=== PATIENT | female | born 1965 | race Caucasian/White ===

== ENCOUNTER 2017-06-22 08:27 | Observation (INO) | payer SELFPAY ==
[2017-06-22] VITALS (11 sets, daily range): BP systolic 143–227; BP diastolic 90–126; PULSE 59–78; RESP 15–26; TEMP 97.8; O2SAT 94–98
[~2017-06-22] VITALS: Ht 154.9 cm; Wt 75.0 kg
[~2017-06-22 08:27] MED LIST: ALBU17I INH; HYDR-2768 PO; NAPR-576 PO
--- NOTE | 2017-06-22 08:38 | PD ---
HPI Chief Complaint: Respiratory Symptoms Time Seen by Provider: 08:32 Travel History International Travel<30 days: No Contact w/Intl Traveler<30days: No Traveled to known affect area: No History of Present Illness HPI 52-year-old female came to the emergency room with history of chest pain and shortness of breath that started last night. Her blood pressure was significantly elevated in triage and she was brought in emergently. Patient says that she has history of blood pressure but has not taken her medications in past 4-5 days since she ran out of medications. She does not have a primary care doctor. She complains of the chest pain in the center of her chest radiating to her back between her shoulder blades. It is a dull pain. Her blood pressure was 225 systolic and she appeared to be in distress upon arrival. No history of coronary artery disease in the past. Patient is a smoker. She said she had a cardiac catheterization done in 2007 which was clean. Patient does not take any aspirin. PFSH Past Medical History Narrative Medical List of her past medical, surgical, social and family history was reviewed from the nursing note. Asthma: Yes Cardiac Catheterization: Yes Diminished Hearing: No Hypertension: Yes Musculoskeletal: Yes (DISC PROBLEMS NECK & BACK) Migraines: Yes ?: Not Menopausal: Yes Past Surgical History Cholecystectomy: Yes Gynecologic Surgery: Yes (LASER FOR CERVICAL DYSPLASIA) Social History Alcohol Use: Yes (2-3 BEERS EVERY 5 DAYS) Tobacco Use: Yes (1PPD) Substance Use: No Allergies-Medications (Allergen,Severity, Reaction): Coded Allergies: bee venom protein (honey bee) (Unverified Allergy, Severe, SWELLS UP., ) prochlorperazine (Unverified Allergy, Severe, HIVES, 06/22/17) Comments List of her allergies reviewed from the nursing note. Reported Meds & Prescriptions Reported Meds & Active Scripts Active Lisinopril 10 Mg Tab 10 Mg PO DAILY Narrative Medication List of her home medications reviewed from the nursing note. Review of Systems Except as stated in HPI: all other systems reviewed are Neg Physical Exam Narrative GENERAL: Awake, alert, moderate to significant distress SKIN: Focused skin assessment warm/dry. HEAD: Atraumatic. Normocephalic. EYES: Pupils equal and round. No scleral icterus. No injection or drainage. ENT: No nasal bleeding or discharge. Mucous membranes pink and moist. NECK: Trachea midline. No JVD. CARDIOVASCULAR: Regular rate and rhythm. No murmur appreciated. RESPIRATORY: No accessory muscle use. Clear to auscultation. Breath sounds equal bilaterally. GASTROINTESTINAL: Abdomen soft, non-tender, nondistended. Hepatic and splenic margins not palpable. MUSCULOSKELETAL: No obvious deformities. No clubbing. No cyanosis. No edema. NEUROLOGICAL: Awake and alert. No obvious cranial nerve deficits. Motor grossly within normal limits. Normal speech. PSYCHIATRIC: Appropriate mood and affect; insight and judgment normal. Data Data Last Documented VS Vital Signs Date Time Temp Pulse Resp B/P (MAP) Pulse Ox O2 Delivery O2 Flow Rate FiO2 06/22/17 10:00 62 170/99 (122) 97 06/22/17 09:35 26 Nasal Cannula 2.00 06/22/17 08:29 97.8 Orders Orders Electrocardiogram (06/22/17 08:39) Basic Metabolic Panel (Bmp) (06/22/17 08:39) B-Type Natriuretic Peptide (06/22/17 08:39) Ckmb (Isoenzyme) Profile (06/22/17 08:39) Complete Blood Count With Diff (06/22/17 08:39) Magnesium (Mg) (06/22/17 08:39) Prothrombin Time / Inr (Pt) (06/22/17 08:39) Act Partial Throm Time (Ptt) (06/22/17 08:39) Troponin I (06/22/17 08:39) Chest, Single Ap (06/22/17 08:39) Ecg Monitoring (06/22/17 08:39) Bilateral Bp Monitoring (06/22/17 08:39) Iv Access Insert/Monitor (06/22/17 08:39) Oximetry (06/22/17 08:39) Oxygen Administration (06/22/17 08:39) Sodium Chloride 0.9% Flush (Ns Flush) (06/22/17 08:45) Cta Thor Abd Aorta W Iv C W3d (06/22/17 08:39) Labetalol Inj (Trandate Inj) (06/22/17 08:45) Iohexol 350 Inj (Omnipaque 350 Inj) (06/22/17 09:29) Admit Order (Ed Use Only) (8/24/17 10:34) Labs Laboratory Tests Test 06/22/17 08:40 White Blood Count 6.9 TH/MM3 Red Blood Count 4.85 MIL/MM3 Hemoglobin 15.6 GM/DL Hematocrit 46.8 % Mean Corpuscular Volume 96.4 FL Mean Corpuscular Hemoglobin 32.2 PG Mean Corpuscular Hemoglobin Concent 33.4 % Red Cell Distribution Width 12.9 % Platelet Count 324 TH/MM3 Mean Platelet Volume 7.8 FL Neutrophils (%) (Auto) 51.2 % Lymphocytes (%) (Auto) 39.5 % Monocytes (%) (Auto) 6.3 % Eosinophils (%) (Auto) 2.3 % Basophils (%) (Auto) 0.7 % Neutrophils # (Auto) 3.5 TH/MM3 Lymphocytes # (Auto) 2.7 TH/MM3 Monocytes # (Auto) 0.4 TH/MM3 Eosinophils # (Auto) 0.2 TH/MM3 Basophils # (Auto) 0.0 TH/MM3 CBC Comment DIFF FINAL Differential Comment Prothrombin Time 10.9 SEC Prothromb Time International Ratio 1.0 RATIO Activated Partial Thromboplast Time 26.6 SEC Blood Urea Nitrogen 9 MG/DL Creatinine 0.89 MG/DL Random Glucose 106 MG/DL Calcium Level 8.6 MG/DL Magnesium Level 2.1 MG/DL Sodium Level 140 MEQ/L Potassium Level 3.5 MEQ/L Chloride Level 107 MEQ/L Carbon Dioxide Level 26.5 MEQ/L Anion Gap 7 MEQ/L Estimat Glomerular Filtration Rate 66 ML/MIN Total Creatine Kinase 73 U/L Troponin I LESS THAN 0.02 NG/ML B-Type Natriuretic Peptide 56 PG/ML MDM Medical Decision Making Medical Screen Exam Complete: Yes Emergency Medical Condition: Yes Medical Record Reviewed: Yes Interpretation(s) Twelve-lead EKG was reviewed by me. Normal sinus rhythm, normal axis, lateral ST depressions. Heart rate of 71 bpm. Differential Diagnosis Hypertensive emergency, aortic dissection, ACS, non-STEMI, flash pulmonary edema , congestive heart failure Narrative Course 10:[address] thoracic aortogram was negative for any dissection. Blood test results of back and within acceptable limits. Patient was given 20 mg of IV labetalol upon arrival has lowered her blood pressure nicely. Patient is now complaining of some headache and I have given her Tylenol. Mental status is same which is GCS 15 since the arrival. I would like to admit this patient to the chest pain center to rule out ACS by electrical designer. Procedures EKG Prior to Arrival: No Diagnosis Primary Impression: Hypertensive urgency Additional Impressions: Chest pain Qualified Codes: R07.9 - Chest pain, unspecified Shortness of breath Admitting Information Admitting Physician Requests: Observation Scripts Lisinopril (Lisinopril) 10 Mg Tab 10 MG PO DAILY, #30 TAB 0 Refills Prov: Gautam Le 06/22/17 Tammie Hwang MD Jun 22, 2017 08:38
[2017-06-22] MEDS ORDERED: LABETALOL HCL 100 MG/20 ML VIAL IV PUSH ONE (08:45)
[2017-06-22] MEDS ORDERED: SODIUM CHLORIDE 0.9% FLUSH 10 ML FLUSH IVF PRN (08:45)
[2017-06-22 09:08] LABS: AUTOMATED NEUTROPHIL # 3.5 TH/MM3 (1.8-7.7); BASOPHIL % 0.7 % (0.0-2.0); EOSINOPHIL # 0.2 TH/MM3 (0-0.4); EOSINOPHIL % 2.3 % (0.0-4.0); HEMATOCRIT 46.8 % (35.0-46.0); HEMO FLAGS DIFF FINAL; LYMPH % 39.5 % (9.0-44.0); LYMPHOCYTE # 2.7 TH/MM3 (1.0-4.8); MEAN CELL VOLUME 96.4 FL (80.0-100.0); MEAN CORPUSCULAR HEMOGLOBIN 32.2 PG (27.0-34.0); MEAN CORPUSCULAR HGB CONC 33.4 % (32.0-36.0); MONO % 6.3 % (0.0-8.0); NEUT % 51.2 % (16.0-70.0); PLATELET COUNT 324 TH/MM3 (150-450); RED BLOOD COUNT 4.85 MIL/MM3 (4.00-5.30); RED CELL DISTRIBUTION WIDTH 12.9 % (11.6-17.2); WHITE BLOOD COUNT 6.9 TH/MM3 (4.0-11.0)
[2017-06-22 09:17] LABS: APTT (PATIENT) 26.6 SEC (24.3-30.1); PROTHROMBIN TIME - PATIENT 10.9 SEC (9.8-11.6)
--- NOTE | 2017-06-22 09:27 | RADRPT ---
EXAM DATE/TIME: 06/22/2017 08:55 [facility] COMPARISON: No previous studies available for comparison. INDICATIONS : Chest pain. MEDICAL HISTORY : Asthma SURGICAL HISTORY : None. ENCOUNTER: Initial ACUITY: 1 day PAIN SCORE: 6/10 LOCATION: Bilateral chest FINDINGS: A single view of the chest demonstrates the lungs to be symmetrically aerated without evidence of mas s, infiltrate or effusion. The cardiomediastinal contours are unremarkable. Osseous structures are intact. CONCLUSION: 1. No acute cardiopulmonary disease. Chris Adams MD on June 22, 2017 at 9:23 Board Certified Radiologist. This report was verified electronically.
[2017-06-22 09:29] LABS: ANION GAP 7 MEQ/L (5-15); BICARBONATE 26.5 MEQ/L (21.0-32.0); BLOOD UREA NITROGEN 9 MG/DL (7-18); CHLORIDE 107 MEQ/L (98-107); GLOMERULAR FILTRATION RATE 66 ML/MIN (>89); MAGNESIUM 2.1 MG/DL (1.5-2.5); POTASSIUM 3.5 MEQ/L (3.5-5.1); SODIUM (NA) 140 MEQ/L (136-145)
[2017-06-22] MEDS ORDERED: IOHEXOL 350 MG/ML 10 ML VIAL (for RAD DIAG) IVCONTRAST ONE (09:29)
[2017-06-22 09:49] LABS: CREATINE KINASE 73 U/L (26-192)
--- NOTE | 2017-06-22 10:14 | RADRPT ---
EXAM DATE/TIME: 06/22/2017 09:22 [facility] COMPARISON: CT BRAIN W/O CONTRAST, December 21, 2013, 21:15. INDICATIONS : Chest pain and shortness of breath since last night. IV CONTRAST: 73 cc Omnipaque 350 (iohexol) IV RADIATION DOSE: 17.06 CTDIvol (mGy) MEDICAL HISTORY : Hypertension. SURGICAL HISTORY : None. ENCOUNTER: Initial ACUITY: 1 day PAIN SCALE: 5/10 LOCATION: Bilateral chest TECHNIQUE: Volumetric scanning was performed using a multi-row detector CT scanner. The data was post processed with a variety of visualization algorithms including full volume maximum intensity projection, multi -planar sliding thin slab reformation, curved planar reformation, and surface rendering techniques. Using automated exposure control and adjustment of the mA and/or kV according to patient size, radiat ion dose was kept as low as reasonably achievable to obtain optimal diagnostic quality images. DICOM format image data is available electronically for review and comparison. FINDINGS: Thoracic aorta: The aortic root is normal in size at 3.2 cm. The ascending aorta measures 3.8 cm. The arch is normal in caliber. The origins the great vessels are widely patent. The descending thoracic aorta is normal in caliber throughout its course. There is no evidence of dissection. Abdominal aorta: The celiac and SMA are widely patent. There are small accessory renal arteries bilaterally. The renal arteries are widely patent. The infrarenal aorta is normal in caliber. The SONDRA is patent. Pelvic vasculature: The common iliac, internal iliac and external iliac circulation is adequate in caliber bilaterally. CT source data: The visualized pulmonary parenchyma is clear. The there is partial visualization of the pulmonary art eries. A larger central pulmonary embolus is seen. There is atherosclerotic plaquing within the coron demetrius arteries. No pericardial or pleural effusion is identified. There is no significant hilar, medias tinal or axillary adenopathy. The solid organs of the abdomen are intact. There is no retroperitoneal adenopathy. No free air or free fluid is present. The loops of small and large bowel are unremarkabl e. The visualized osseous structures demonstrate degenerative changes but are otherwise intact. CONCLUSION: 1. No evidence of thoracic aortic dissection. 2. The abdominal aorta is intact. 3. Moderate atherosclerotic plaquing involving the coronary arteries. 4. Degenerative changes in the thoracic and lumbar spine. Nelson Dodd MD on June 22, 2017 at 10:06 Board Certified Radiologist. This report was verified electronically.
[2017-06-22] MEDS ORDERED: ACETAMINOPHEN 325 MG TAB PO ONE (10:45)
--- NOTE | 2017-06-22 11:02 | EKG ---
Date Performed: 06/22/2017 Time Performed: 08:40:53 PTAGE: 52 years EKG: Sinus rhythm NONSPECIFIC ST & T-WAVE ABNORMALITY BORDERLINE ECG PREVIOUS TRACING : 05/26/2014 14.22 No significant change from previous tracing noted. DOCTOR: Aditya Juárez Interpretating Date/Time 06/22/2017 11:02:18
[2017-06-22] MEDS ORDERED: cloNIDine HCL 0.1 MG TAB PO PRN (11:45)
[2017-06-22] MEDS ORDERED: SODIUM CHLORIDE 0.9% FLUSH 5 ML FLUSH IVF PRN (11:45)
[2017-06-22] MEDS ORDERED: RESP: ALBUTEROL 2.5 MG/IPRATROPIUM 0.5 MG NEB (PRN) INH (11:45)
[2017-06-22] MEDS ORDERED: ALPRAZolam 0.25 MG TAB PO PRN (11:45)
[2017-06-22] MEDS ORDERED: ACETAMINOPHEN 500 MG CPLT PO PRN (11:45)
[2017-06-22] MEDS ORDERED: ACETAMINOPHEN/HYDROcodone 325 MG/7.5 MG TAB PO PRN (11:45)
[2017-06-22] MEDS ORDERED: ONDANSETRON HCL 4 MG/2 ML VIAL IV PRN (11:45)
--- NOTE | 2017-06-22 11:45 | HHI.HP ---
HPI Primary Care Physician No Primary Care Physician Chief Complaint Chest pain History of Present Illness This is a 52-year-old female that presents to ED with a complaint of a chest discomfort that began last night while lying down. She describes it as a central/left-sided chest tightness. It lasts 5-10 minutes with associated shortness of breath and nausea but denies diaphoresis. She's found that certain movements including lying on her left side can at times bring on the discomfort. Patient denies history of CAD. She states that she had a cardiac catheterization however this is about 10 years ago and states that it was normal. She has history of hypertension but ran out of lisinopril a few days ago. Her systolic blood pressure was 220s when arriving in the ED. She was given IV labetalol in the ED and systolic blood pressure has improved to 140s. Review of Systems General: Patient denies fevers, chills recent, and recent travel HEENT: Patient denies headache, sore throat, difficulty swallowing. Cardiovascular: Has the chest discomfort as mentioned above. Denies sensation of heart beating rapidly or irregularly. No syncope. Denies diaphoresis. Respiratory: She was short of breath. Denies inspirational chest discomfort. Denies coughing wheezing or hemoptysis. GI: She had some nausea. Patient denies vomiting, diarrhea, abdominal pain, bloody stools. Musculoskeletal: Patient denies joint pain or edema. Denies calf pain or edema. Neurovascular: Patient denies numbness, tingling, weakness in extremities. Denies headache. Endocrine: Denies polyuria and polydipsia. Hematologic: Denies easy bruising. Skin: Denies rash or itching. Past Family Social History Allergies: Coded Allergies: bee venom protein (honey bee) (Unverified Allergy, Severe, SWELLS UP., ) prochlorperazine (Unverified Allergy, Severe, HIVES, 06/22/17) Past Medical History Hypertension. Tobacco abuse. Denies hyperlipidemia, diabetes, and known CAD. Past Surgical History Cardiac catheterization without intervention about 10 years ago. Reported Medications Reported Meds & Active Scripts Active No Active Prescriptions or Reported Medications Active Ordered Medications Current Medications Medications (Trade) Dose Ordered Sig/Ke Route Start Time Stop Time Status Last Admin (NS Flush) 2 ml UNSCH PRN IVF 06/22/17 08:45 06/22/17 08:46 Family History Her brother in his 50s of CAD. Her mother had a bypass in her 50s. Social History Patient has been smoking for 30 years. For the last month she smoked one half pack a day but prior that she smoked on average 2 packs of cigarettes daily. Denies alcohol or illicit drugs. Physical Exam Vital Signs Vital Signs Date Time Temp Pulse Resp B/P (MAP) Pulse Ox O2 Delivery O2 Flow Rate FiO2 06/22/17 10:00 62 170/99 (122) 97 06/22/17 09:35 60 26 163/95 (117) 98 Nasal Cannula 2.00 06/22/17 08:58 65 22 146/95 (112) 95 Nasal Cannula 2.00 06/22/17 08:47 67 170/100 (123) 06/22/17 08:46 68 24 170/100 (123) 94 Nasal Cannula 2.00 06/22/17 08:40 94 Nasal Cannula 2.00 06/22/17 08:37 94 Room Air 06/22/17 08:37 70 227/126 (159) 06/22/17 08:37 67 18 227/125 (159) 98 Room Air 06/22/17 08:29 97.8 78 15 226/122 (156) 94 Physical Exam GENERAL: This is a well-nourished, well-developed patient, in no apparent distress. Patient speaks in clear complete sentences. Patient is pleasant. HEENT: Head is atraumatic and normocephalic. Neck is supple without lymphadenopathy and trachea is midline. No JVD or carotid bruits. CARDIOVASCULAR: Regular rate and rhythm without murmurs, gallops, or rubs. RESPIRATORY: There are bilateral expiratory wheezing.. Breath sounds equal bilaterally. No rales, or rhonchi. Chest wall is nontender. No use of accessory muscles. GASTROINTESTINAL: Abdomen is nontender, nondistended. Abdomen soft. No obvious pulsatile mass or bruit. No CVA tenderness. Strong femoral pulses bilaterally. Normal bowel sounds in all quadrants. MUSCULOSKELETAL: Patient is moving upper and lower extremities freely. No calf tenderness or edema, no Homans sign. Strong pulses in upper and lower extremities. NEUROLOGICAL: Patient is alert and oriented. Cranial nerves 2-12 are grossly intact. No focal deficits and speech is clear. SKIN: No rash and turgor is normal. Laboratory Laboratory Tests Test 8/24/17 08:40 White Blood Count 6.9 Red Blood Count 4.85 Hemoglobin 15.6 Hematocrit 46.8 Mean Corpuscular Volume 96.4 Mean Corpuscular Hemoglobin 32.2 Mean Corpuscular Hemoglobin Concent 33.4 Red Cell Distribution Width 12.9 Platelet Count 324 Mean Platelet Volume 7.8 Neutrophils (%) (Auto) 51.2 Lymphocytes (%) (Auto) 39.5 Monocytes (%) (Auto) 6.3 Eosinophils (%) (Auto) 2.3 Basophils (%) (Auto) 0.7 Neutrophils # (Auto) 3.5 Lymphocytes # (Auto) 2.7 Monocytes # (Auto) 0.4 Eosinophils # (Auto) 0.2 Basophils # (Auto) 0.0 CBC Comment DIFF FINAL Differential Comment Prothrombin Time 10.9 Prothromb Time International Ratio 1.0 Activated Partial Thromboplast Time 26.6 Blood Urea Nitrogen 9 Creatinine 0.89 Random Glucose 106 Calcium Level 8.6 Magnesium Level 2.1 Sodium Level 140 Potassium Level 3.5 Chloride Level 107 Carbon Dioxide Level 26.5 Anion Gap 7 Estimat Glomerular Filtration Rate 66 Total Creatine Kinase 73 Troponin I LESS THAN 0.02 B-Type Natriuretic Peptide 56 Result Diagram: 06/22/1740 06/22/17 0840 Imaging Last 48 hours Impressions Chest X-Ray 06/22/17 0839 Signed Impressions: Service Date/Time: May 08:55 - CONCLUSION: 1. No acute cardiopulmonary disease. Chris Adams MD Course Initial EKG is sinus rhythm with some lateral nonspecific ST T changes. Caprini VTE Risk Assessment Caprini VTE Risk Assessment: No/Low Risk (score <= 1) Caprini Risk Assessment Model Point Value = 1 Point Value = 2 Point Value = 3 Point Value = 5 Age 41-60 Minor surgery BMI > 25 kg/m2 Swollen legs Varicose veins or History of unexplained or recurrent spontaneous Oral contraceptives or hormone replacement Sepsis (< 1 month) Serious lung disease, including pneumonia (< 1 month) Abnormal pulmonary function Acute myocardial infarction Congestive heart failure (< 1 month) History of inflammatory bowel disease Medical patient at bed rest Age 61-74 Arthroscopic surgery Major open surgery (> 45 min) Laparoscopic surgery (> 45 min) Malignancy Confined to bed (> 72 hours) Immobilizing plaster cast Central venous access Age >= 75 History of VTE Family history of VTE Factor V Leiden Prothrombin [id number] Lupus anticoagulant Anticardiolipin antibodies Elevated serum homocysteine Heparin-induced thrombocytopenia Other congenital or acquired thrombophilia Stroke (< 1 month) Elective arthroplasty Hip, pelvis, or leg fracture Acute spinal cord injury (< 1 month) Prophylaxis Regimen Total Risk Factor Score Risk Level Prophylaxis Regimen 0-1 Low Early ambulation 2 Moderate Order ONE of the following: *Sequential Compression Device (SCD) *Heparin 5000 units SQ BID 3-4 Higher Order ONE of the following medications: *Heparin 5000 units SQ TID *Enoxaparin/Lovenox 40 mg SQ daily (WT < 150 kg, CrCl > 30 mL/min) *Enoxaparin/Lovenox 30 mg SQ daily (WT < 150 kg, CrCl > 10-29 mL/min) *Enoxaparin/Lovenox 30 mg SQ BID (WT < 150 kg, CrCl > 30 mL/min) AND/OR *Sequential Compression Device (SCD) 5 or more Highest Order ONE of the following medications: *Heparin 5000 units SQ TID (Preferred with Epidurals) *Enoxaparin/Lovenox 40 mg SQ daily (WT < 150 kg, CrCl > 30 mL/min) *Enoxaparin/Lovenox 30 mg SQ daily (WT < 150 kg, CrCl > 10-29 mL/min) *Enoxaparin/Lovenox 30 mg SQ BID (WT < 150 kg, CrCl > 30 mL/min) AND *Sequential Compression Device (SCD) Assessment and Plan Assessment and Plan * Chest pain: Patient has had first set of cardiac enzymes and EKGs. She will be seen by Dr. Ari Marrero of cardiology in the chest pain center and undergo likely a Lexiscan and be discharged if her stress test is nonischemic. * Hypertension: We'll restart her medication. * Tobacco abuse: Patient has been counseled on the importance of smoking cessation. Patient is stable at this time. She is agreeable to this plan. Gautam Le Jun 22, 2017 11:45
[2017-06-22] MEDS ORDERED: RESP: ALBUTEROL 2.5 MG/IPRATROPIUM 0.5 MG NEB (SCH) INH ONE (12:45)
[2017-06-22] MEDS ORDERED: LISINOPRIL 10 MG TAB PO ONE (13:00)
[2017-06-22] MEDS ORDERED: REGADENOSON INJ 0.4 MG/5 ML SYR ONE (13:54)
--- NOTE | 2017-06-22 15:52 | RADRPT ---
EXAM DATE/TIME: 06/22/2017 13:18 [facility] COMPARISON: No previous studies available for comparison. INDICATIONS : Left sided chest pain. Angina. Coronary artery disease. DOSE: 26.7 mCi Tc99m Myoview at stress. 8.2 mCi Tc99m Myoview at rest. 0.4 mg Lexiscan STRESS SYMPTOMS: Shortness of breath. EJECTION FRACTION: 59% MEDICAL HISTORY : Hypertension. Smaoker and asthma. SURGICAL HISTORY : Back surgery. ENCOUNTER: Initial ACUITY: 1 day PAIN SCALE: 4/10 LOCATION: Left chest TECHNIQUE: The patient underwent pharmacologic stress with infusion of prescribed dose. Continuous ECG tracing was monitored during stress. Gated SPECT imaging was performed after stress and conventional SPECT i maging was performed at rest. The examination was performed on a SPECT/CT scanner, both attenuation and non-corrected datasets were reviewed. FINDINGS: DISTRIBUTION: The maximum perfused segment at stress is in the anterolateral wall. PERFUSION STUDY: The pattern of perfusion at stress is within normal limits. GATED STUDY: There is intact wall motion and thickening without hypokinetic or dyskinetic segments. CONCLUSION: 1. No significant focal perfusion abnormality with stress. 2. No significant focal wall motion abnormality. EF of 59%. RISK CATEGORY: Low (<1% Annual Mortality Rate) Chris Adams MD on June 22, 2017 at 15:48 Board Certified Radiologist. This report was verified electronically.
--- NOTE | 2017-06-22 16:28 | HHI.DCPOC ---
Discharge Care Plan Diagnosis: (1) Hypertension (2) Tobacco abuse (3) Chest pain Goals to Promote Your Health * To prevent worsening of your condition and complications * To maintain your health at the optimal level Directions to Meet Your Goals Take your medications as prescribed Follow your dietary instruction Follow activity as directed Keep your appointments as scheduled Take your immunizations and boosters as scheduled If your symptoms worsen call your PCP, if no PCP go to Urgent Care Center or Emergency Room Smoking is Dangerous to Your Health. Avoid second hand smoke Call the 24-hour hour crisis hotline for domestic abuse at Gautam Le Jun 22, 2017 16:28
[2017-06-22] MEDS ORDERED: LISI10TA3 PO (16:29)
--- NOTE | 2017-06-22 16:35 | TR ---
Date Performed: 06/22/2017 Time Performed: 14:00:16 DOCTOR: Ari Marrero DRUG LIST: CLINICAL HISTORY: ANGINA REASON FOR TEST: Angina REASON FOR ENDING: OBSERVATION: CONCLUSION: Lexiscan stress test was performed under standard four minute protocol. Radionuclid e was injected one minute prior to ending the test. No electrocardiographic abormalities were present to suggest ischemia. Nuclear imaging and interpretation are pending. COMMENTS:
[2017-06-22] MEDS ORDERED: SODIUM CHLORIDE 0.9% FLUSH 5 ML FLUSH IVF SCH (21:00)
[2017-06-23] MEDS ORDERED: ASPIRIN 325 MG TAB PO SCH (09:00)
[2017-06-30] MEDS ORDERED: VENTAER INH ×2 (14:52→15:01)
[2017-06-30] MEDS ORDERED: ADVA115A INH ×2 (14:52→15:01)
[2017-06-30] MEDS ORDERED: LISI10TA3 PO (14:58)
[2017-06-30] MEDS ORDERED: AMLO10TA2 PO (14:59)
[2017-06-30] MEDS ORDERED: IBUP-232 PO (15:10)
[2017-07-21] MEDS ORDERED: ESCI10TA PO (09:47)
[2017-07-21] MEDS ORDERED: HYDR50TA94 PO (09:47)
[2017-07-21] MEDS ORDERED: LAMO25TA PO (09:47)
== END 2017-06-22 18:07 | disposition home or self-care (01) ==
LOC: NEPC 08:27 → NEDA 10:35 → NEPGCP 11:51
PROVIDERS: ADMIT Internal Medicine Cardiovascular Disease; ATTEND Internal Medicine Cardiovascular Disease
DX: I10 Essential (primary) hypertension (principal); R07.89 Other chest pain; R94.31 Abnormal electrocardiogram [ECG] [EKG]; F17.200 Nicotine dependence, unspecified, uncomplicated
CPT/HCPCS: 71010; 71275; 74174; 78452; 80048; 82550; 83735; 83880; 84484; 85025; 85610; 85730; 93005; 93017; 94664; 99285; A9502; G0378; J2785; Q9967

== ENCOUNTER 2017-07-02 17:50 | Inpatient (IN) | payer OTHER ==
[~2017-07-02] VITALS: Ht 152.4 cm; Wt 77.6 kg
[2017-07-02] VITALS (8 sets, daily range): BP systolic 101–138; BP diastolic 58–80; PULSE 88–110; RESP 20–34; TEMP 99; O2SAT 89–95
[~2017-07-02 17:50] MED LIST changes: +ADVA115A INH; -ALBU17I INH; +AMLO10TA2 PO; -HYDR-2768 PO; +IBUP-232 PO; +LISI10TA3 PO; -NAPR-576 PO; +VENTAER INH
[2017-07-02] MEDS ORDERED: SODIUM CHLORIDE 0.9% FLUSH 10 ML FLUSH IVF PRN (18:00)
--- NOTE | 2017-07-02 18:07 | PD ---
HPI Chief Complaint: Respiratory Symptoms Time Seen by Provider: 18:00 Travel History International Travel<30 days: No Contact w/Intl Traveler<30days: No Traveled to known affect area: No History of Present Illness HPI Patient comes in complaining of dyspnea that she awoke with this morning. Patient states she is needs a breathing treatment home this morning that seemed to help until about an hour ago she began becoming short of breath again. Patient states she did not have her breathing treatment with her nor an inhaler. Patient received 2 albuterol treatments along with 125 of Solu-Medrol by EMS that helped some. Patient reports associating tightness around her chest and feeling her heart is fluttering. Patient denies any fevers, nausea, vomiting, abdominal pain or loss change in bowel or bladder, or numbness or tingling anywhere. Symptoms are worse with trying to exert herself. PFSH Past Medical History Asthma: Yes Heart Rhythm Problems: No Cardiac Catheterization: Yes Cardiovascular Problems: Yes High Cholesterol: No Congestive Heart Failure: No Diabetes: No Diminished Hearing: No Hypertension: Yes Musculoskeletal: Yes (DISC PROBLEMS NECK & BACK) Immunizations Current: No Migraines: Yes ?: Not Menopausal: Yes Past Surgical History Cholecystectomy: Yes Coronary Artery Bypass Graft: No Gynecologic Surgery: Yes (LASER FOR CERVICAL DYSPLASIA) Social History Alcohol Use: Yes (OCC ) Tobacco Use: Yes (1PPD) Substance Use: No (DENIES ) Allergies-Medications (Allergen,Severity, Reaction): Coded Allergies: bee venom protein (honey bee) (Unverified Allergy, Severe, SWELLS UP., 06/30) prochlorperazine (Unverified Allergy, Severe, HIVES, 06/30/17) Reported Meds & Prescriptions Reported Meds & Active Scripts Active Ibuprofen 600 Mg Tab 600 Mg PO Q8H PRN Advair Hfa 12 GM Inh (Fluticasone-Salmeterol 12 GM Inh) 115-21 Mcg/Act Aer 2 Puff INH BID Ventolin Hfa 18 GM Inh (Albuterol Sulfate) 90 Mcg/Act Aer 2 Puff INH Q4-6H PRN Amlodipine (Amlodipine Besylate) 10 Mg Tab 10 Mg PO DAILY Lisinopril 10 Mg Tab 10 Mg PO DAILY Review of Systems Except as stated in HPI: all other systems reviewed are Neg Physical Exam Narrative GENERAL: Well-developed, overly nourished, in moderate respiratory distress, and non-ill appearing. SKIN: Focused skin assessment warm and dry. HEAD: Atraumatic. Normocephalic. EYES: Pupils equal and round. EOMI. No scleral icterus. No injection or drainage. ENT: No nasal bleeding or discharge. Mucous membranes pink and moist. NECK: Trachea midline. Supple. No nuclear rigidity. CARDIOVASCULAR: Regular rate and rhythm. No murmur appreciated. RESPIRATORY: Accessory muscle use. Respiratory distress. Decreased breath sounds throughout with wheezing. Patient struggling to speak in full sentences. GASTROINTESTINAL: Abdomen soft, non-tender, nondistended, and no guarding. Hepatic and splenic margins not palpable. No pulsatile mass. MUSCULOSKELETAL: No obvious deformities. No clubbing. No cyanosis. No edema. Full range of motion. NEUROLOGICAL: Awake and alert. No obvious cranial nerve deficits. Motor grossly within normal limits. PSYCHIATRIC: Appropriate mood and affect; insight and judgment normal. Data Data Last Documented VS Vital Signs Date Time Temp Pulse Resp B/P (MAP) Pulse Ox O2 Delivery O2 Flow Rate FiO2 07/02/17 19:41 97 26 112/74 (87) BiPAP 50 07/02/17 19:04 95 07/02/17 18:03 3.00 07/02/17 17:55 99.0 Orders Orders Complete Blood Count With Diff (07/02/17 18:00) Basic Metabolic Panel (Bmp) (07/02/17 18:00) Act Partial Throm Time (Ptt) (07/02/17 18:00) Prothrombin Time / Inr (Pt) (07/02/17 18:00) Ckmb (Isoenzyme) Profile (07/02/17 18:00) Troponin I (07/02/17 18:00) Arterial Blood Gas (Abg) (07/02/17 18:00) Iv Access Insert/Monitor (07/02/17 18:00) Electrocardiogram (07/02/17 18:00) Ecg Monitoring (07/02/17 18:00) Oximetry (07/02/17 18:00) Oxygen Administration (07/02/17 18:00) Chest, Single Ap (07/02/17 18:00) Sodium Chloride 0.9% Flush (Ns Flush) (07/02/17 18:00) Albuterol-Ipratropium Neb (Duoneb Neb) (07/02/17 18:00) Resp Bipap / Cpap Non Invas Vt (07/02/17 18:00) Magnesium Sulfate 1 Gm Premix (Magnesium (07/02/17 18:15) CKMB (07/02/17 18:00) CKMB% (07/02/17 18:00) Ketorolac Inj (Toradol Inj) (07/02/17 19:45) Arterial Blood Gas (Abg) (07/02/17 19:47) Admit Order (Ed Use Only) (07/02/17 20:20) Labs Laboratory Tests Test 07/02/17 18:00 07/02/17 18:23 White Blood Count 9.0 TH/MM3 Red Blood Count 4.71 MIL/MM3 Hemoglobin 15.5 GM/DL Hematocrit 45.8 % Mean Corpuscular Volume 97.2 FL Mean Corpuscular Hemoglobin 32.9 PG Mean Corpuscular Hemoglobin Concent 33.9 % Red Cell Distribution Width 12.8 % Platelet Count 307 TH/MM3 Mean Platelet Volume 8.8 FL Neutrophils (%) (Auto) 60.5 % Lymphocytes (%) (Auto) 27.8 % Monocytes (%) (Auto) 9.0 % Eosinophils (%) (Auto) 1.6 % Basophils (%) (Auto) 1.1 % Neutrophils # (Auto) 5.4 TH/MM3 Lymphocytes # (Auto) 2.5 TH/MM3 Monocytes # (Auto) 0.8 TH/MM3 Eosinophils # (Auto) 0.1 TH/MM3 Basophils # (Auto) 0.1 TH/MM3 CBC Comment DIFF FINAL Differential Comment Prothrombin Time 10.9 SEC Prothromb Time International Ratio 1.0 RATIO Activated Partial Thromboplast Time 26.3 SEC Blood Urea Nitrogen 12 MG/DL Creatinine 1.26 MG/DL Random Glucose 127 MG/DL Calcium Level 8.7 MG/DL Sodium Level 139 MEQ/L Potassium Level 4.0 MEQ/L Chloride Level 107 MEQ/L Carbon Dioxide Level 27.1 MEQ/L Anion Gap 5 MEQ/L Estimat Glomerular Filtration Rate 44 ML/MIN Total Creatine Kinase 140 U/L Creatine Kinase MB 1.7 NG/ML Troponin I LESS THAN 0.02 NG/ML Blood Gas Puncture Site RT RADIAL Blood Gas Patient Temperature 98.6 Blood Gas HCO3 24 mmol/L Blood Gas Base Excess 0.0 mmol/L Blood Gas Oxygen Saturation 80 % Arterial Blood pH 7.42 Arterial Blood Partial Pressure CO2 37 mmHg Arterial Blood Partial Pressure O2 47 mmHG Arterial Blood Oxygen Content 16.8 Vol % Arterial Blood Carboxyhemoglobin 5.7 % Arterial Blood Methemoglobin 0.8 % Blood Gas Hemoglobin 15.0 G/DL Oxygen Delivery Device NASAL CANNULA Blood Gas Liter Flow 3 L/M MDM Medical Decision Making Medical Screen Exam Complete: Yes Emergency Medical Condition: Yes Interpretation(s) EKG reviewed by Dr. Baca shows sinus tachycardia with a ventricular rate of 104. No STEMI. Chest x-ray read by the radiologist shows: No acute disease. Chest x-ray read by the radiologist shows: No acute disease. Differential Diagnosis COPD exacerbation, pneumonia, electrolyte abnormality, acute coronary syndrome, other Narrative Course Patient was seen and examined. Initial laboratory radiological studies were ordered. Patient was placed on BiPAP with DuoNeb treatments. IV magnesium was ordered. Discussed patient with Dr. Baca, who saw and evaluated the patient and is in agreement with plan of care and disposition. If the patient does not improve on BiPAP, Dr. Baca discussed with patient possibility of needing intubation 1849 patient reassessed reports some improvement with the BiPAP and DuoNeb's. 1929 patient reports improvement of her BiPAP and is asking for something for headache now. Discussed all findings and plan care of patient who is agreeable for admission. Physician Communication Physician Communication [address] Renee, who is agreeable to admit the patient and is requesting repeat ABG. Diagnosis Primary Impression: COPD with acute exacerbation Admitting Information Admitting Physician Requests: Admit Condition: Stable William Waldron Jul 02, 2017 18:07
--- NOTE | 2017-07-02 18:19 | RADRPT ---
EXAM DATE/TIME: 07/02/2017 18:13 [facility] COMPARISON: CHEST SINGLE AP, June 22, 2017, 8:55. INDICATIONS : Short of breath MEDICAL HISTORY : Hypertension. Asthma SURGICAL HISTORY : None. ENCOUNTER: Initial ACUITY: 2 days PAIN SCORE: 0/10 LOCATION: Bilateral chest FINDINGS: A single view of the chest demonstrates the lungs to be symmetrically aerated without evidence of mas s, infiltrate or effusion. The cardiomediastinal contours are unremarkable. Osseous structures are intact. The study is degraded by mild motion artifact. There are overlying cardiac leads. CONCLUSION: No acute disease. Mohinder Root MD on July 02, 2017 at 18:13 Board Certified Radiologist. This report was verified electronically.
[2017-07-02 18:24] LABS: AUTOMATED NEUTROPHIL # 5.4 TH/MM3 (1.8-7.7); BASOPHIL # 0.1 TH/MM3 (0-0.2); BASOPHIL % 1.1 % (0.0-2.0); EOSINOPHIL # 0.1 TH/MM3 (0-0.4); EOSINOPHIL % 1.6 % (0.0-4.0); HEMATOCRIT 45.8 % (35.0-46.0); HEMO FLAGS DIFF FINAL; LYMPH % 27.8 % (9.0-44.0); LYMPHOCYTE # 2.5 TH/MM3 (1.0-4.8); MEAN CELL VOLUME 97.2 FL (80.0-100.0); MEAN CORPUSCULAR HEMOGLOBIN 32.9 PG (27.0-34.0); MEAN CORPUSCULAR HGB CONC 33.9 % (32.0-36.0); NEUT % 60.5 % (16.0-70.0); PLATELET COUNT 307 TH/MM3 (150-450); RED BLOOD COUNT 4.71 MIL/MM3 (4.00-5.30); RED CELL DISTRIBUTION WIDTH 12.8 % (11.6-17.2)
[2017-07-02 18:34] LABS: APTT (PATIENT) 26.3 SEC (24.3-30.1); PROTHROMBIN TIME - PATIENT 10.9 SEC (9.8-11.6)
[2017-07-02 18:37] LABS: BLOOD GAS CARBOXYHEMOGLOBIN 5.7 % (0-4); BLOOD GAS HCO3 24 mmol/L (22-26); BLOOD GAS METHEMOGLOBIN 0.8 % (0-2); BLOOD GAS O2 HGB SATURATION 80 % (90-100); BLOOD GAS OXYGEN CONTENT 16.8 Vol % (12.0-20.0); BLOOD GAS PCO2 37 mmHg (38-42); BLOOD GAS PO2 47 mmHG (61-120); CRITICAL VALUE YES; DRAW SITE RT RADIAL; LITER FLOW 3 L/M; NUMBER OF ARTERIAL PUNCTURES 1; OXYGEN DEVICE NASAL CANNULA; STAT YES; TEMP CORR TO 98.6; ULNAR PULSE PRESENT
[2017-07-02] MEDS: RESP: ALBUTEROL 2.5 MG/IPRATROPIUM 0.5 MG NEB (SCH) INH ×3 (18:37→22:36)
[2017-07-02] MEDS: MAGNESIUM SULFATE 1 GM PREMIX 100 ML IV SCH ×2 (18:59→20:33)
[2017-07-02 19:04] LABS: ANION GAP 5 MEQ/L (5-15); BICARBONATE 27.1 MEQ/L (21.0-32.0); BLOOD UREA NITROGEN 12 MG/DL (7-18); CHLORIDE 107 MEQ/L (98-107); CREATINE KINASE 140 U/L (26-192); GLOMERULAR FILTRATION RATE 44 ML/MIN (>89); SODIUM (NA) 139 MEQ/L (136-145)
[2017-07-02 19:17] LABS: CKMB 1.7 NG/ML (0.5-3.6)
[2017-07-02] MEDS ORDERED: KETOROLAC TROMETHAMINE 30 MG/ML (IVP) VIAL IV PUSH ONE (19:45)
[2017-07-02 20:30] LABS: BLOOD GAS CARBOXYHEMOGLOBIN 3.9 % (0-4); BLOOD GAS HCO3 23 mmol/L (22-26); BLOOD GAS METHEMOGLOBIN 0.7 % (0-2); BLOOD GAS O2 HGB SATURATION 91 % (90-100); BLOOD GAS PCO2 38 mmHg (38-42); BLOOD GAS PO2 74 mmHG (61-120); BLOOD GAS TOTAL HGB 14.9 G/DL (12.0-16.0); TEMP CORR TO 98.6
[2017-07-02 20:31] LABS: CRITICAL VALUE NO; DRAW SITE RT RADIAL; FIO2 50 %; NUMBER OF ARTERIAL PUNCTURES 1; OXYGEN DEVICE BiPAP; STAT YES; ULNAR PULSE PRESENT; VENT SETTINGS IPAP10/EPAP5
[2017-07-02] MEDS ORDERED: DEXTROSE 50% IN WATER 50 ML VIAL(D50) IV PUSH PRN (20:45)
[2017-07-02] MEDS ORDERED: SODIUM CHLORIDE 0.9% FLUSH 10 ML FLUSH IV FLUSH PRN (20:45)
[2017-07-02] MEDS ORDERED: NALOXONE HCL 0.4 MG/ML AMP IV PRN (20:45)
[2017-07-02] MEDS ORDERED: GLUCAGON 1 MG/ML VIAL OTHER PRN (20:45)
[2017-07-02] MEDS ORDERED: ENALAPRILAT 1.25 MG/ML VIAL IV PUSH PRN (20:45)
--- NOTE | 2017-07-02 20:45 | HHI.HP ---
[facility]ician No Primary Care Physician Admission Diagnosis COPD exacerbation Diagnoses: Chief Complaint: Short of breath Travel History International Travel<30 Days: No Contact w/Intl Traveler <30 Da: No Traveled to Known Affected Are: No History of Present Illness This 52 years old female with history of tobacco abuse and COPD who recently hospitalized for pneumonia state of the hospital for a week and that happened 6 weeks ago and normal hospital, presented today with severe worsening short of breath with chest tightness, phlegm production, dizziness and headache, patient saw her primary care on Monday she was prescribed inhalers but she didn't get it because she didn't have money. No fever or chills no abdominal pain diarrhea constipation dysuria urgency or frequency. She received multiple DuoNeb with 125 mg of iv Solu-Medrol without improvement BiPAP has been tried which showed improvement, ABG ordered by me and showed the CO2 73 and PO2 34. I saw the patient and her fianc was in the room at the bedside. She was able to talk comfortably after we took off the BiPAP and place on nasal cannula. 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 Past Surgical History gallbladder removal cryo treatment to cervix 20yrs ago Tubal ligation Allergies: Coded Allergies: bee venom protein (honey bee) (Unverified Allergy, Severe, SWELLS UP., 06/30) prochlorperazine (Unverified Allergy, Severe, HIVES, 06/30/17) Family History dm Social History Tobacco use: 1/2PPD X 45 yrs Alcohol use: rarely, once a year Illicit drug use: denies Physical Exam Vital Signs Vital Signs Date Time Temp Pulse Resp B/P (MAP) Pulse Ox O2 Delivery O2 Flow Rate FiO2 07/02/17 19:41 97 26 112/74 (87) BiPAP 50 07/02/17 19:04 102 22 123/75 (91) 95 BiPAP 07/02/17 18:38 93 50 07/02/17 18:03 105 28 92 Nasal Cannula 3.00 07/02/17 18:03 102 34 92 Nasal Cannula 3.00 07/02/17 18:03 89 Nasal Cannula 3.00 07/02/17 17:55 99.0 110 28 138/80 (99) 89 Physical Exam - GENERAL: This is a well-nourished, well-developed patient, in mild respiratory distress. SKIN: No rashes, warm and dry HEAD: Atraumatic. Normocephalic. EYES: Pupils equal round and reactive. Extraocular motions intact. No scleral icterus. ENT: Nose without bleeding, or drainage, Airway patent. NECK: Trachea midline. Supple CARDIOVASCULAR: Regular rate and rhythm without murmurs, gallops, or rubs. RESPIRATORY: Scattered wheezes bilaterally with slight expiratory muscle use. GASTROINTESTINAL: Abdomen soft, non-tender, nondistended. Positive bowel sounds MUSCULOSKELETAL: Extremities without clubbing, cyanosis, or edema. Pedal pulses appreciated NEUROLOGICAL: Awake and alert. Moves all extremity. Normal speech.no focal neurological deficit Laboratory Laboratory Tests Test 07/02/17 18:00 07/02/17 18:23 White Blood Count 9.0 Red Blood Count 4.71 Hemoglobin 15.5 Hematocrit 45.8 Mean Corpuscular Volume 97.2 Mean Corpuscular Hemoglobin 32.9 Mean Corpuscular Hemoglobin Concent 33.9 Red Cell Distribution Width 12.8 Platelet Count 307 Mean Platelet Volume 8.8 Neutrophils (%) (Auto) 60.5 Lymphocytes (%) (Auto) 27.8 Monocytes (%) (Auto) 9.0 Eosinophils (%) (Auto) 1.6 Basophils (%) (Auto) 1.1 Neutrophils # (Auto) 5.4 Lymphocytes # (Auto) 2.5 Monocytes # (Auto) 0.8 Eosinophils # (Auto) 0.1 Basophils # (Auto) 0.1 CBC Comment DIFF FINAL Differential Comment Prothrombin Time 10.9 Prothromb Time International Ratio 1.0 Activated Partial Thromboplast Time 26.3 Blood Urea Nitrogen 12 Creatinine 1.26 Random Glucose 127 Calcium Level 8.7 Sodium Level 139 Potassium Level 4.0 Chloride Level 107 Carbon Dioxide Level 27.1 Anion Gap 5 Estimat Glomerular Filtration Rate 44 Total Creatine Kinase 140 Creatine Kinase MB 1.7 Troponin I LESS THAN 0.02 Blood Gas Puncture Site RT RADIAL Blood Gas Patient Temperature 98.6 Blood Gas HCO3 24 Blood Gas Base Excess 0.0 Blood Gas Oxygen Saturation 80 Arterial Blood pH 7.42 Arterial Blood Partial Pressure CO2 37 Arterial Blood Partial Pressure O2 47 Arterial Blood Oxygen Content 16.8 Arterial Blood Carboxyhemoglobin 5.7 Arterial Blood Methemoglobin 0.8 Blood Gas Hemoglobin 15.0 Oxygen Delivery Device NASAL CANNULA Blood Gas Liter Flow 3 Result Diagram: 07/02/17 1800 07/02/17 1800 Imaging Last Impressions Chest X-Ray 07/02/17 1800 Signed Impressions: Service Date/Time: Sunday, July 02, 2017 18:13 - CONCLUSION: No acute disease. MD Jaime Bernabe VTE Risk Assessment Jaime VTE Risk Assessment: Mod/High Risk (score >= 2) Caprini Risk Assessment Model Point Value = 1 Point Value = 2 Point Value = 3 Point Value = 5 Age 41-60 Minor surgery BMI > 25 kg/m2 Swollen legs Varicose veins or History of unexplained or recurrent spontaneous Oral contraceptives or hormone replacement Sepsis (< 1 month) Serious lung disease, including pneumonia (< 1 month) Abnormal pulmonary function Acute myocardial infarction Congestive heart failure (< 1 month) History of inflammatory bowel disease Medical patient at bed rest Age 61-74 Arthroscopic surgery Major open surgery (> 45 min) Laparoscopic surgery (> 45 min) Malignancy Confined to bed (> 72 hours) Immobilizing plaster cast Central venous access Age >= 75 History of VTE Family history of VTE Factor V Leiden Prothrombin [id number] Lupus anticoagulant Anticardiolipin antibodies Elevated serum homocysteine Heparin-induced thrombocytopenia Other congenital or acquired thrombophilia Stroke (< 1 month) Elective arthroplasty Hip, pelvis, or leg fracture Acute spinal cord injury (< 1 month) Prophylaxis Regimen Total Risk Factor Score Risk Level Prophylaxis Regimen 0-1 Low Early ambulation 2 Moderate Order ONE of the following: *Sequential Compression Device (SCD) *Heparin 5000 units SQ BID 3-4 Higher Order ONE of the following medications: *Heparin 5000 units SQ TID *Enoxaparin/Lovenox 40 mg SQ daily (WT < 150 kg, CrCl > 30 mL/min) *Enoxaparin/Lovenox 30 mg SQ daily (WT < 150 kg, CrCl > 10-29 mL/min) *Enoxaparin/Lovenox 30 mg SQ BID (WT < 150 kg, CrCl > 30 mL/min) AND/OR *Sequential Compression Device (SCD) 5 or more Highest Order ONE of the following medications: *Heparin 5000 units SQ TID (Preferred with Epidurals) *Enoxaparin/Lovenox 40 mg SQ daily (WT < 150 kg, CrCl > 30 mL/min) *Enoxaparin/Lovenox 30 mg SQ daily (WT < 150 kg, CrCl > 10-29 mL/min) *Enoxaparin/Lovenox 30 mg SQ BID (WT < 150 kg, CrCl > 30 mL/min) AND *Sequential Compression Device (SCD) Assessment and Plan Assessment and Plan 52 years old female presented with short of breath -Acute short of breath with hypoxic respiratory failure, history of asthma, tobacco abuse, COPD exacerbation: Patient received multiple DuoNeb doses, Solu- Medrol 125 iv 1, placed on BiPAP with improved ABG, I will continue on Solu- Medrol 60 mg every 8 hours, continue O2 to keep O2 sat above 92%, BiPAP as needed, close monitoring considering patient had a pneumonia recently, chest x- ray reviewed personally by me (unremarkable), will start Levaquin considering her acute phlegm production and recent pneumonia, continue Advair -Recent pneumonia hospitalization 6 weeks ago: As above -TONYA with increased creatinine 1.26, very recent creatinine value was 0.89, will hold on lisinopril and CONSTANTINO inhibitor, avoid nephrotoxin, stop ibuprofen, check UA and start gentle iv fluid, repeat BMP in a.m. -History of hypertension: Continue Norvasc hold lisinopril, clonidine as needed , monitor blood pressure -Questionable diabetes mellitus: Patient not sure, she was given labs by her PCP to do it but she has not yet, will check A1c, and FLP, Accu-Chek with sliding scale as needed -Tobacco abuse: Patient counseled extensively -H/O Hyperlipidemia: Check FLP in a.m. -Lower back pain and sciatica: We'll try to Avoid narcotics due to respiratory failure, will avoid tramadol due to questionable history of seizure mentioned in previous document, patient has been taking ibuprofen -DVT prophylaxis with SCD and heparin Discussed Condition With Patient a physician and the Nelida Avila MD Jul 02, 2017 20:45
[2017-07-02] MEDS ORDERED: SODIUM CHLOR 0.9% 1000 ML INJ 1,000 ML IV SCH (21:00)
[2017-07-02] MEDS ORDERED: FLUTICASONE SALMETEROL INH SCH (21:00)
[2017-07-02] MEDS: SODIUM CHLORIDE 0.9% FLUSH 10 ML FLUSH IV FLUSH SCH (21:00)
[2017-07-02] MEDS ORDERED: [UNRECOGNIZED DRUG - OTHER] INH SCH (21:00)
[2017-07-02] MEDS: INSULIN ASPART SUPPLEMENTAL SCALE SQ SCH (21:00)
[2017-07-02] MEDS: HEPARIN SODIUM - SQ 10,000 UNITS/ML VIAL SQ SCH (21:36)
[2017-07-02] MEDS ORDERED: LEVOFLOXACIN 500 MG TAB PO SCH (22:00)
[2017-07-03] VITALS (28 sets, daily range): BP systolic 114–147; BP diastolic 70–90; PULSE 69–98; RESP 20; TEMP 97.6–98.8; O2SAT 93–98
[2017-07-03] MEDS: RESP: ALBUTEROL 2.5 MG/IPRATROPIUM 0.5 MG NEB (SCH) INH ×4 (05:06→22:32)
[2017-07-03] MEDS: HEPARIN SODIUM - SQ 10,000 UNITS/ML VIAL SQ SCH ×3 (05:15→20:59)
[2017-07-03] MEDS: INSULIN ASPART SUPPLEMENTAL SCALE SQ SCH ×4 (06:10→21:00)
[2017-07-03] MEDS ORDERED: methylPREDNISolone SOD SUCC 40 MG/1 ML VIAL IV PUSH SCH (08:00)
[2017-07-03] MEDS ORDERED: LISINOPRIL 10 MG TAB PO SCH (09:00)
[2017-07-03] MEDS: SODIUM CHLORIDE 0.9% FLUSH 10 ML FLUSH IV FLUSH SCH ×2 (09:00→20:59)
[2017-07-03 09:05] LABS: AUTOMATED NEUTROPHIL # 8.7 TH/MM3 (1.8-7.7); BASOPHIL % 0.1 % (0.0-2.0); HEMATOCRIT 43.7 % (35.0-46.0); HEMO FLAGS DIFF FINAL; LYMPH % 8.7 % (9.0-44.0); LYMPHOCYTE # 0.9 TH/MM3 (1.0-4.8); MEAN CELL VOLUME 97.4 FL (80.0-100.0); MEAN CORPUSCULAR HEMOGLOBIN 32.6 PG (27.0-34.0); MEAN CORPUSCULAR HGB CONC 33.5 % (32.0-36.0); MONO % 3.8 % (0.0-8.0); NEUT % 87.4 % (16.0-70.0); PLATELET COUNT 272 TH/MM3 (150-450); RED BLOOD COUNT 4.49 MIL/MM3 (4.00-5.30); RED CELL DISTRIBUTION WIDTH 13.2 % (11.6-17.2); WHITE BLOOD COUNT 9.9 TH/MM3 (4.0-11.0)
[2017-07-03 09:36] LABS: POTASSIUM 3.5 MEQ/L (3.5-5.1)
[2017-07-03 09:44] LABS: HDL CHOLESTEROL 45.3 MG/DL (40.0-60.0)
--- NOTE | 2017-07-03 10:50 | HHI.PR ---
Subjective Remarks Follow-up COPD exacerbation/hypoxic respiratory failure 07/03/17-patient seen and examined, respiratory status improving and patient denies significant shortness of breath. Currently starting at 97%.. Still smokes half a pack per day Objective Vitals Vital Signs Date Time Temp Pulse Resp B/P (MAP) Pulse Ox O2 Delivery O2 Flow Rate FiO2 07/03/17 10:16 76 07/03/17 09:49 80 07/03/17 08:22 74 07/03/17 07:32 69 07/03/17 07:31 97.9 69 20 147/86 (106) 98 07/03/17 06:00 74 07/03/17 05:13 97 40 07/03/17 05:13 97 BiPAP 40 07/03/17 05:00 75 07/03/17 04:00 98.8 76 20 114/80 (91) 96 07/03/17 04:00 76 07/03/17 03:00 79 07/03/17 02:00 80 07/03/17 01:00 81 07/03/17 00:00 98.6 84 20 115/70 (85) 96 07/03/17 00:00 84 07/02/17 23:32 85 18 104/62 (76) 97 07/02/17 22:01 88 20 101/58 (72) 92 Nasal Cannula 5.00 07/02/17 20:39 95 50 07/02/17 19:41 97 26 112/74 (87) BiPAP 50 07/02/17 19:04 102 22 123/75 (91) 95 BiPAP 07/02/17 18:38 93 50 07/02/17 18:03 105 28 92 Nasal Cannula 3.00 07/02/17 18:03 102 34 92 Nasal Cannula 3.00 07/02/17 18:03 89 Nasal Cannula 3.00 07/02/17 17:55 99.0 110 28 138/80 (99) 89 I/O 07/02/17 07/02/17 07/02/17 07/03/17 07/03/17 07/03/17 06:59 14:59 22:59 06:59 14:59 22:59 Intake Total 200 ml 1320 ml Output Total 600 ml Balance 200 ml 720 ml Intake Oral 480 ml IV Total 200 ml 840 ml Output Urine Total 600 ml # Bowel Movements 0 Result Diagram: 07/03/17 0813 07/03/17 0813 Imaging Last Impressions Chest X-Ray 07/02/17 1800 Signed Impressions: Service Date/Time: Sunday, July 02, 2017 18:13 - CONCLUSION: No acute disease. Mohinder Root MD Objective Remarks GENERAL: NAD SKIN: Warm and dry. HEAD: Normocephalic. EYES: No scleral icterus. No injection or drainage. NECK: Supple, trachea midline. No JVD or lymphadenopathy. CARDIOVASCULAR: Regular rate and rhythm without murmurs, gallops, or rubs. RESPIRATORY: Breath sounds decreased bilaterally. No accessory muscle use. Expiratory wheezes GASTROINTESTINAL: Abdomen soft, non-tender, nondistended. MUSCULOSKELETAL: No cyanosis, or edema. BACK: Nontender without obvious deformity. No CVA tenderness. A/P Problem List: (1) Acute respiratory failure with hypoxia ICD Code: J96.01 - Acute respiratory failure with hypoxia (2) COPD with acute exacerbation ICD Code: J44.1 - Chronic obstructive pulmonary disease with (acute) exacerbation Status: Acute (3) Hypertensive urgency ICD Code: I16.0 - Hypertensive urgency Status: Acute (4) Tobacco abuse ICD Code: Z72.0 - Tobacco use (5) IFG (impaired fasting glucose) ICD Code: R73.01 - Impaired fasting glucose Assessment and Plan 52-year-old female with Acute respiratory failure with hypoxemia COPD exacerbation Change Solu-Medrol to 20 mg every 8 hour Starts Spiriva, Symbicort, continue schedule and when necessary duo Neb as well as antibiotic Maintain oxygen saturation above 92% Tobacco cessation counseling provided BiPAP when necessary Impaired fasting glucose A1c pending Hypertension Continue Norvasc Tobacco abuse Tobacco cessation counseling provided Start nicotine patch DVT prophylaxis: Bilateral SCDs Catalino Cash MD Jul 03, 2017 10:50
[2017-07-03] MEDS: NICOTINE 14 MG/24 HR PATCH T-DERMAL SCH (11:00)
[2017-07-03] MEDS: REMOVE OLD PATCH T-DERMAL SCH (11:00)
[2017-07-03 11:17] LABS: HEMOGLOBIN A1a 1.4 %; HEMOGLOBIN A1b 0.9 %; HEMOGLOBIN Ao 84.2 %; HEMOGLOBIN F 1.2 %; HEMOGLOBIN LA1C 2.1 %; HEMOGLOBIN P3 3.7 %
[2017-07-03] MEDS: BUDESONIDE-FORMOTEROL 160/4.5 MCG INHALER INH SCH ×2 (11:34→21:00)
[2017-07-03] MEDS: TIOTROPIUM BROMIDE 18 MCG INH INH SCH (11:34)
[2017-07-03] MEDS: methylPREDNISolone SOD SUCC 40 MG/1 ML VIAL IV PUSH SCH ×2 (17:02→23:45)
[2017-07-03] MEDS: ACETAMINOPHEN 325 MG TAB PO PRN (18:36)
--- NOTE | 2017-07-03 20:12 | EKG ---
Date Performed: 07/02/2017 Time Performed: 18:09:40 PTAGE: 52 years EKG: SINUS TACHYCARDIA INCOMPLETE RIGHT BUNDLE BRANCH BLOCK NONSPECIFIC ST & T-WAVE ABNORMALITY ABNORMAL RHYTHM ECG PREVIOUS TRACING : 06/22/2017 08.40 DOCTOR: Phil Heaton Interpretating Date/Time 07/03/2017 20:07:04
[2017-07-03] MEDS: guaiFENesin E.R. 600 MG TAB PO SCH (20:59)
[2017-07-03] MEDS: LEVOFLOXACIN 250 MG TAB PO SCH (21:00)
[2017-07-04] VITALS (18 sets, daily range): BP systolic 116–158; BP diastolic 66–99; PULSE 74–100; RESP 17–20; TEMP 96.2–98.6; O2SAT 92–98
[2017-07-04] MEDS: RESP: ALBUTEROL 2.5 MG/IPRATROPIUM 0.5 MG NEB (SCH) INH ×4 (03:12→20:48)
[2017-07-04] MEDS: HEPARIN SODIUM - SQ 10,000 UNITS/ML VIAL SQ SCH ×3 (05:59→20:36)
[2017-07-04] MEDS: INSULIN ASPART SUPPLEMENTAL SCALE SQ SCH ×4 (06:00→20:36)
[2017-07-04] MEDS: REMOVE OLD PATCH T-DERMAL SCH (09:00)
[2017-07-04] MEDS: NICOTINE 14 MG/24 HR PATCH T-DERMAL SCH (09:00)
[2017-07-04] MEDS: guaiFENesin E.R. 600 MG TAB PO SCH ×2 (09:05→20:37)
[2017-07-04] MEDS: SODIUM CHLORIDE 0.9% FLUSH 10 ML FLUSH IV FLUSH SCH ×2 (09:05→20:37)
[2017-07-04] MEDS: methylPREDNISolone SOD SUCC 40 MG/1 ML VIAL IV PUSH SCH ×2 (09:05→20:36)
[2017-07-04] MEDS: TIOTROPIUM BROMIDE 18 MCG INH INH SCH (09:05)
[2017-07-04] MEDS: BUDESONIDE-FORMOTEROL 160/4.5 MCG INHALER INH SCH ×2 (09:06→20:41)
[2017-07-04] MEDS: ACETAMINOPHEN 325 MG TAB PO PRN ×3 (09:24→20:44)
--- NOTE | 2017-07-04 10:48 | HHI.PR ---
Subjective Remarks Follow-up COPD exacerbation/hypoxic respiratory failure 07/03/17-patient seen and examined, respiratory status improving and patient denies significant shortness of breath. Currently starting at 97%.. Still smokes half a pack per day 07/04/17-patient seen and examined, reports improvement of shortness of breath. Complains of back pain as well as bilateral lower extremities secondary to RLS for which patient is requesting narcotics. Afebrile Objective Vitals Vital Signs Date Time Temp Pulse Resp B/P (MAP) Pulse Ox O2 Delivery O2 Flow Rate FiO2 07/04/17 10:32 18 07/04/17 10:00 100 07/04/17 09:52 98 Nasal Cannula 0.50 07/04/17 08:09 97.1 75 18 158/99 (118) 96 07/04/17 07:00 74 07/04/17 06:00 80 07/04/17 05:00 87 07/04/17 04:00 86 07/04/17 04:00 98.3 86 18 144/92 (109) 97 07/04/17 03:15 94 Nasal Cannula 2.00 07/04/17 03:00 85 07/04/17 02:00 83 07/04/17 01:00 85 07/04/17 00:00 98.4 88 18 116/66 (83) 97 07/04/17 00:00 88 07/03/17 23:00 85 07/03/17 22:44 96 40 07/03/17 22:35 96 Nasal Cannula 2.00 07/03/17 22:00 89 07/03/17 21:00 97 07/03/17 20:00 94 07/03/17 20:00 98.7 94 20 137/82 (100) 96 07/03/17 18:07 97 07/03/17 17:11 98 07/03/17 16:16 94 07/03/17 15:17 88 07/03/17 15:17 98.4 98 20 134/90 (105) 95 07/03/17 14:43 85 07/03/17 13:20 93 07/03/17 12:00 89 07/03/17 11:53 93 Nasal Cannula 2.00 07/03/17 11:21 97.6 76 20 137/85 (102) 95 07/03/17 11:21 76 I/O 07/03/17 07/03/17 07/03/17 07/04/17 07/04/17 07/04/17 07:00 15:00 23:00 07:00 15:00 23:00 Intake Total 1320 ml 960 ml 480 ml Output Total 600 ml 1250 ml 700 ml Balance 720 ml -290 ml -220 ml Intake Oral 480 ml 960 ml 480 ml IV Total 840 ml Output Urine Total 600 ml 1250 ml 700 ml # Bowel Movements 0 1 0 Result Diagram: 07/03/17 0813 07/03/17 0813 Imaging Last Impressions Chest X-Ray 07/02/17 1800 Signed Impressions: Service Date/Time: Sunday, July 02, 2017 18:13 - CONCLUSION: No acute disease. Mohinder Root MD Objective Remarks GENERAL: NAD SKIN: Warm and dry. HEAD: Normocephalic. EYES: No scleral icterus. No injection or drainage. NECK: Supple, trachea midline. No JVD or lymphadenopathy. CARDIOVASCULAR: Regular rate and rhythm without murmurs, gallops, or rubs. RESPIRATORY: Breath sounds decreased bilaterally. No accessory muscle use. GASTROINTESTINAL: Abdomen soft, non-tender, nondistended. MUSCULOSKELETAL: No cyanosis, or edema. BACK: Nontender without obvious deformity. No CVA tenderness. A/P Problem List: (1) Acute respiratory failure with hypoxia ICD Code: J96.01 - Acute respiratory failure with hypoxia Status: Resolved (2) COPD with acute exacerbation ICD Code: J44.1 - Chronic obstructive pulmonary disease with (acute) exacerbation Status: Acute (3) Hypertensive urgency ICD Code: I16.0 - Hypertensive urgency Status: Acute (4) Tobacco abuse ICD Code: Z72.0 - Tobacco use (5) IFG (impaired fasting glucose) ICD Code: R73.01 - Impaired fasting glucose Assessment and Plan 52-year-old female with Acute respiratory failure with hypoxemia-resolved COPD exacerbation Change Solu-Medrol to 20 mg every 12 hour; will change to by mouth prednisone likely in a.m. Continue Spiriva, Symbicort, continue schedule and when necessary duo Neb as well as antibiotic Maintain oxygen saturation above 92% Tobacco cessation counseling provided BiPAP when necessary Impaired fasting glucose A1c 5.9 Hypertension Continue Norvasc Tobacco abuse Tobacco cessation counseling provided Continue nicotine patch DVT prophylaxis: Bilateral SCDs Transfer to Catalino Lyman MD Jul 04, 2017 10:47
[2017-07-04] MEDS ORDERED: ADVA100A INH (15:18)
[2017-07-04] MEDS: LEVOFLOXACIN 250 MG TAB PO SCH (20:37)
[2017-07-05] VITALS (9 sets, daily range): BP systolic 126–163; BP diastolic 76–88; PULSE 70–95; RESP 17–20; TEMP 96.2–98.8; O2SAT 93–96
[2017-07-05] MEDS: ACETAMINOPHEN 325 MG TAB PO PRN ×5 (03:42→23:25)
[2017-07-05] MEDS: HEPARIN SODIUM - SQ 10,000 UNITS/ML VIAL SQ SCH ×3 (05:43→20:13)
[2017-07-05] MEDS: ONDANSETRON HCL 4 MG/2 ML VIAL IVP PRN (05:50)
[2017-07-05] MEDS: RESP: ALBUTEROL 2.5 MG/IPRATROPIUM 0.5 MG NEB (SCH) INH ×4 (06:06→21:01)
[2017-07-05] MEDS: methylPREDNISolone SOD SUCC 40 MG/1 ML VIAL IV PUSH SCH ×2 (08:19→20:14)
[2017-07-05] MEDS: guaiFENesin E.R. 600 MG TAB PO SCH ×2 (08:19→20:14)
[2017-07-05] MEDS: BUDESONIDE-FORMOTEROL 160/4.5 MCG INHALER INH SCH ×2 (08:20→20:15)
[2017-07-05] MEDS: NICOTINE 14 MG/24 HR PATCH T-DERMAL SCH (08:20)
[2017-07-05] MEDS: TIOTROPIUM BROMIDE 18 MCG INH INH SCH (08:20)
[2017-07-05] MEDS: INSULIN ASPART SUPPLEMENTAL SCALE SQ SCH ×4 (08:27→20:14)
[2017-07-05] MEDS: SODIUM CHLORIDE 0.9% FLUSH 10 ML FLUSH IV FLUSH SCH ×2 (08:29→20:14)
[2017-07-05] MEDS: REMOVE OLD PATCH T-DERMAL SCH (09:00)
--- NOTE | 2017-07-05 12:31 | HHI.PR ---
Subjective Remarks Follow-up COPD exacerbation/hypoxic respiratory failure 07/03/17-patient seen and examined, respiratory status improving and patient denies significant shortness of breath. Currently starting at 97%.. Still smokes half a pack per day 07/04/17-patient seen and examined, reports improvement of shortness of breath. Complains of back pain as well as bilateral lower extremities secondary to RLS for which patient is requesting narcotics. Afebrile 07/05/17-patient seen and examined, reports significant improvement of shortness of breath, afebrile and no acute event overnight Objective Vitals Vital Signs Date Time Temp Pulse Resp B/P (MAP) Pulse Ox O2 Delivery O2 Flow Rate FiO2 07/05/17 08:00 96.6 70 20 151/85 (107) 93 07/05/17 06:14 95 Nasal Cannula 2.00 07/05/17 03:40 97.6 74 17 163/88 (113) 93 07/05/17 00:20 98.8 95 18 126/76 (93) 94 07/04/17 20:48 93 07/04/17 20:05 96.8 80 17 143/84 (103) 94 07/04/17 16:00 98.6 93 20 150/81 (104) 92 07/04/17 15:19 92 21 07/04/17 13:00 96.2 91 20 145/79 (101) 92 I/O 07/04/17 07/04/17 07/04/17 07/05/17 07/05/17 07/05/17 06:59 14:59 22:59 06:59 14:59 22:59 Intake Total 480 ml 600 ml 240 ml 240 ml Output Total 700 ml Balance -220 ml 600 ml 240 ml 240 ml Intake Oral 480 ml 600 ml 240 ml 240 ml Output Urine Total 700 ml # Voids 4 1 2 # Bowel Movements 0 0 0 0 Result Diagram: 07/03/17 0813 07/03/17 0813 Imaging Last Impressions Chest X-Ray 07/02/17 1800 Signed Impressions: Service Date/Time: Sunday, July 02, 2017 18:13 - CONCLUSION: No acute disease. Mohinder Root MD Objective Remarks GENERAL: NAD SKIN: Warm and dry. HEAD: Normocephalic. EYES: No scleral icterus. No injection or drainage. NECK: Supple, trachea midline. No JVD or lymphadenopathy. CARDIOVASCULAR: Regular rate and rhythm without murmurs, gallops, or rubs. RESPIRATORY: Breath sounds decreased bilaterally. No accessory muscle use. GASTROINTESTINAL: Abdomen soft, non-tender, nondistended. MUSCULOSKELETAL: No cyanosis, or edema. BACK: Nontender without obvious deformity. No CVA tenderness. Procedures none A/P Problem List: (1) Acute respiratory failure with hypoxia ICD Code: J96.01 - Acute respiratory failure with hypoxia Status: Resolved (2) COPD with acute exacerbation ICD Code: J44.1 - Chronic obstructive pulmonary disease with (acute) exacerbation Status: Resolved (3) Hypertensive urgency ICD Code: I16.0 - Hypertensive urgency Status: Resolved (4) Tobacco abuse ICD Code: Z72.0 - Tobacco use (5) IFG (impaired fasting glucose) ICD Code: R73.01 - Impaired fasting glucose Assessment and Plan 52-year-old female with Acute respiratory failure with hypoxemia-resolved COPD exacerbation-resolved d/c Solu-Medrol 20 mg every 12 hour; will change to by mouth prednisone likely on discharge Continue Spiriva, Symbicort, continue schedule and when necessary duo Neb as well as antibiotic Maintain oxygen saturation above 92% Tobacco cessation counseling provided BiPAP when necessary Perform walk test Impaired fasting glucose A1c 5.9 Hypertension Continue Norvasc Tobacco abuse Tobacco cessation counseling provided Continue nicotine patch DVT prophylaxis: Bilateral SCDs Catalino Cash MD Jul 05, 2017 12:31
[2017-07-05] MEDS ORDERED: PRED20 PO (12:33)
[2017-07-05] MEDS ORDERED: IPRA17I INH (12:33)
[2017-07-05] MEDS ORDERED: VENTAER INH (12:33)
--- NOTE | 2017-07-05 12:37 | HHI.DS ---
Discharge Summary Admission Date Jul 02, 2017 at 21:00 Discharge Date: Jul 10, 2017 Admitting Diagnosis COPD exacerbation (1) Acute respiratory failure with hypoxia ICD Code: J96.01 - Acute respiratory failure with hypoxia Status: Resolved (2) COPD with acute exacerbation ICD Code: J44.1 - Chronic obstructive pulmonary disease with (acute) exacerbation Status: Resolved (3) Hypertensive urgency ICD Code: I16.0 - Hypertensive urgency Status: Resolved (4) Tobacco abuse ICD Code: Z72.0 - Tobacco use (5) IFG (impaired fasting glucose) ICD Code: R73.01 - Impaired fasting glucose Procedures none Brief History - From Admission This 52 years old female with history of tobacco abuse and COPD who recently hospitalized for pneumonia state of the hospital for a week and that happened 6 weeks ago and normal hospital, presented today with severe worsening short of breath with chest tightness, phlegm production, dizziness and headache, patient saw her primary care on Monday she was prescribed inhalers but she didn't get it because she didn't have money. No fever or chills no abdominal pain diarrhea constipation dysuria urgency or frequency. She received multiple DuoNeb with 125 mg of iv Solu-Medrol without improvement BiPAP has been tried which showed improvement, ABG ordered by me and showed the CO2 73 and PO2 34. I saw the patient and her fianc was in the room at the bedside. She was able to talk comfortably after we took off the BiPAP and place on nasal cannula. CBC/BMP: 07/03/17 0813 07/03/17 0813 Significant Findings Laboratory Tests Test 07/02/17 18:00 07/02/17 18:23 07/02/17 20:05 07/03/17 08:13 Hemoglobin 15.5 GM/DL (11.6-15.3) Monocytes (%) (Auto) 9.0 % (0.0-8.0) Creatinine 1.26 MG/DL (0.50-1.00) Random Glucose 127 MG/DL (74-106) 192 MG/DL (74-106) Estimat Glomerular Filtration Rate 44 ML/MIN (>89) 63 ML/MIN (>89) Troponin I LESS THAN 0.02 NG/ML Blood Gas Oxygen Saturation 80 % (90-100) Arterial Blood Partial Pressure CO2 37 mmHg (38-42) Arterial Blood Partial Pressure O2 47 mmHG (61-120) Arterial Blood Carboxyhemoglobin 5.7 % (0-4) Neutrophils (%) (Auto) 87.4 % (16.0-70.0) Lymphocytes (%) (Auto) 8.7 % (9.0-44.0) Neutrophils # (Auto) 8.7 TH/MM3 (1.8-7.7) Lymphocytes # (Auto) 0.9 TH/MM3 (1.0-4.8) Imaging Last Impressions Chest X-Ray 07/02/17 1800 Signed Impressions: Service Date/Time: Sunday, July 02, 2017 18:13 - CONCLUSION: No acute disease. Mohinder Root MD PE at Discharge GENERAL: NAD SKIN: Warm and dry. HEAD: Normocephalic. EYES: No scleral icterus. No injection or drainage. NECK: Supple, trachea midline. No JVD or lymphadenopathy. CARDIOVASCULAR: Regular rate and rhythm without murmurs, gallops, or rubs. RESPIRATORY: Breath sounds decreased bilaterally. No accessory muscle use. GASTROINTESTINAL: Abdomen soft, non-tender, nondistended. MUSCULOSKELETAL: No cyanosis, or edema. BACK: Nontender without obvious deformity. No CVA tenderness. Hospital Course Patient admitted secondary to acute respiratory failure as well as COPD exacerbation. She was initially placed on BiPAP with subsequent improvement of symptoms and switch to nasal cannula. She was treated with IV Solu-Medrol, long and short-acting bronchodilator along with by mouth antibiotics. Her symptoms improved and patient switched to by mouth prednisone upon discharge. She was continued on her treatment for hypertension. DVT and GI prophylaxis were provided. Pt Condition on Discharge: Stable Discharge Disposition: Discharge Home Discharge Time: <= 30 minutes Discharge Instructions DIET: Follow Instructions for: Heart Healthy Diet Activities you can perform: Regular-No Restrictions Follow up Referrals: PCP Follow-up - 1 Week New Medications: Albuterol 18 GM Inh (Ventolin Hfa 18 GM Inh) 90 Mcg/Act Aer 2 PUFF INH Q4-6H PRN for SHORTNESS OF BREATH, #1 INHALER 0 Refills Ipratropium HFA 12.9 GM Inh (Atrovent HFA 12.9 GM Inh) 17 Mcg/Actuation Aer 2 PUFF INH Q6HR PRN for SHORTNESS OF BREATH, #1 INHALER 0 Refills Ipratropium HFA 12.9 GM Inh (Atrovent HFA 12.9 GM Inh) 17 Mcg/Actuation Aer 2 PUFF INH QID for Breathing Treatment, #4 INHALER 0 Refills Prednisone (Prednisone) 20 Mg Tab 20 MG PO DIRECTED for Inflammation, #11 TAB 0 Refills 40 MG twice a day x 3 days, then 20 MG daily x 3 days, then 10 MG daily x 3 days Budesonide-Formoterol Inh (Symbicort Inh) 160-4.5 Mcg/Act Aero 2 PUFF INH Q12HR for Breathing Treatment, #1 INHALER 4 Refills Tiotropium Inh (Spiriva Handihaler) 18 Mcg Cap 18 MCG INH DAILY for Breathing Treatment, #1 CAP 3 Refills 1 capsule = 18 mcg [guaiFENesin ER] () 600 MG TABCR 600 MG PO BID for Breathing Treatment, #20 Continued Medications: Albuterol 18 GM Inh (Ventolin Hfa 18 GM Inh) 90 Mcg/Act Aer 2 PUFF INH Q4-6H PRN for SHORTNESS OF BREATH, #1 INHALER 4 Refills (This prescription has been renewed) Amlodipine (Amlodipine) 10 Mg Tab 10 MG PO DAILY for Blood Pressure Management, #30 TAB 4 Refills (This prescription has been renewed) Fluticasone-Salmeterol Inh (Advair Diskus Inh) 100-50 Mcg/Blist Aer 1 PUFF INH BID for Asthma Management, #1 INHALER 4 Refills Rinse mouth after use. Ibuprofen (Ibuprofen) 600 Mg Tab 600 MG PO Q8H PRN for PAIN, #90 TAB 4 Refills Lisinopril (Lisinopril) 10 Mg Tab 10 MG PO DAILY, #30 TAB 0 Refills Catalino Cash MD Jul 05, 2017 12:37
[2017-07-05] MEDS: LEVOFLOXACIN 250 MG TAB PO SCH (20:14)
[2017-07-06] VITALS (7 sets, daily range): BP systolic 140–165; BP diastolic 87–97; PULSE 69–80; RESP 16–18; TEMP 95.9–98; O2SAT 93–96
[2017-07-06] MEDS: RESP: ALBUTEROL 2.5 MG/IPRATROPIUM 0.5 MG NEB (SCH) INH ×4 (04:39→21:31)
[2017-07-06] MEDS: INSULIN ASPART SUPPLEMENTAL SCALE SQ SCH ×4 (06:08→21:14)
[2017-07-06] MEDS: HEPARIN SODIUM - SQ 10,000 UNITS/ML VIAL SQ SCH ×3 (06:10→21:14)
[2017-07-06] MEDS: ACETAMINOPHEN 325 MG TAB PO PRN ×4 (06:10→22:55)
[2017-07-06] MEDS: guaiFENesin E.R. 600 MG TAB PO SCH ×2 (08:19→21:14)
[2017-07-06] MEDS: methylPREDNISolone SOD SUCC 40 MG/1 ML VIAL IV PUSH SCH (08:19)
[2017-07-06] MEDS: NICOTINE 14 MG/24 HR PATCH T-DERMAL SCH (08:19)
[2017-07-06] MEDS: REMOVE OLD PATCH T-DERMAL SCH (08:19)
[2017-07-06] MEDS: BUDESONIDE-FORMOTEROL 160/4.5 MCG INHALER INH SCH ×2 (08:22→21:14)
[2017-07-06] MEDS: SODIUM CHLORIDE 0.9% FLUSH 10 ML FLUSH IV FLUSH SCH ×2 (08:22→21:14)
[2017-07-06] MEDS: TIOTROPIUM BROMIDE 18 MCG INH INH SCH (08:23)
--- NOTE | 2017-07-06 12:02 | HHI.PR ---
Subjective Remarks Follow-up COPD exacerbation/hypoxic respiratory failure 07/03/17-patient seen and examined, respiratory status improving and patient denies significant shortness of breath. Currently starting at 97%.. Still smokes half a pack per day 07/04/17-patient seen and examined, reports improvement of shortness of breath. Complains of back pain as well as bilateral lower extremities secondary to RLS for which patient is requesting narcotics. Afebrile 07/05/17-patient seen and examined, reports significant improvement of shortness of breath, afebrile and no acute event overnight 07/06/17-patient seen and examined, patient failed walk test yesterday and she complains of cough production however describe as white. Currently afebrile. Case discussed with lining caser to assist with discharge proceeding Objective Vitals Vital Signs Date Time Temp Pulse Resp B/P (MAP) Pulse Ox O2 Delivery O2 Flow Rate FiO2 07/06/17 08:41 96 Nasal Cannula 2.00 07/06/17 08:00 95.9 73 18 165/95 (118) 93 07/06/17 00:00 96.7 73 16 140/87 (104) 95 07/05/17 21:01 94 Nasal Cannula 2.00 07/05/17 19:00 97.1 87 17 137/86 (103) 93 07/05/17 16:00 96.3 75 20 135/84 (101) 93 07/05/17 12:00 96.2 72 20 139/84 (102) 95 I/O 07/05/17 07/05/17 07/05/17 07/06/17 07/06/17 07/06/17 06:59 14:59 22:59 06:59 14:59 22:59 Intake Total 240 ml 750 ml 480 ml 240 ml Balance 240 ml 750 ml 480 ml 240 ml Intake Oral 240 ml 750 ml 480 ml 240 ml # Voids 2 3 2 3 # Bowel Movements 0 1 0 0 Result Diagram: 07/03/1781207/03/17812 Objective Remarks GENERAL: NAD SKIN: Warm and dry. HEAD: Normocephalic. EYES: No scleral icterus. No injection or drainage. NECK: Supple, trachea midline. No JVD or lymphadenopathy. CARDIOVASCULAR: Regular rate and rhythm without murmurs, gallops, or rubs. RESPIRATORY: Breath sounds decreased bilaterally. No accessory muscle use. GASTROINTESTINAL: Abdomen soft, non-tender, nondistended. MUSCULOSKELETAL: No cyanosis, or edema. BACK: Nontender without obvious deformity. No CVA tenderness. Procedures none A/P Problem List: (1) Acute respiratory failure with hypoxia ICD Code: J96.01 - Acute respiratory failure with hypoxia Status: Resolved (2) COPD with acute exacerbation ICD Code: J44.1 - Chronic obstructive pulmonary disease with (acute) exacerbation Status: Resolved (3) Hypertensive urgency ICD Code: I16.0 - Hypertensive urgency Status: Resolved (4) Tobacco abuse ICD Code: Z72.0 - Tobacco use (5) IFG (impaired fasting glucose) ICD Code: R73.01 - Impaired fasting glucose Assessment and Plan 52-year-old female with Acute respiratory failure with hypoxemia-resolved COPD exacerbation-resolved d/c Solu-Medrol 20 mg every 12 hour; start prednisone 10 mg by mouth twice a day Continue Spiriva, Symbicort, continue schedule and when necessary duo Neb as well as antibiotic. Add Mucinex Maintain oxygen saturation above 92% Tobacco cessation counseling provided BiPAP when necessary Failed walk test 07/05/17. Repeat walk test within the next days Impaired fasting glucose A1c 5.9 Hypertension Continue Norvasc Tobacco abuse Tobacco cessation counseling provided Continue nicotine patch DVT prophylaxis: Bilateral SCDs Discharge Planning When arrangement is made for home oxygen Catalino Cash MD Jul 06, 2017 12:02
[2017-07-06] MEDS: predniSONE 10 MG TAB PO SCH (21:14)
[2017-07-06] MEDS: cloNIDine HCL 0.1 MG TAB PO PRN (21:14)
[2017-07-06] MEDS: LEVOFLOXACIN 250 MG TAB PO SCH (22:54)
[2017-07-07] VITALS: BP 142/86; PULSE 76; RESP 16; TEMP 97.7; O2SAT 94
[2017-07-07] MEDS: ACETAMINOPHEN 325 MG TAB PO PRN ×5 (02:56→20:32)
[2017-07-07] MEDS: INSULIN ASPART SUPPLEMENTAL SCALE SQ SCH ×4 (06:34→20:48)
[2017-07-07] MEDS: HEPARIN SODIUM - SQ 10,000 UNITS/ML VIAL SQ SCH ×3 (06:35→20:32)
[2017-07-07 08:00] VITALS: BP 167/91; PULSE 69; RESP 20; TEMP 96.7; O2SAT 94
[2017-07-07] MEDS: REMOVE OLD PATCH T-DERMAL SCH (09:00)
[2017-07-07] MEDS: NICOTINE 14 MG/24 HR PATCH T-DERMAL SCH (09:00)
[2017-07-07 09:36] VITALS: O2SAT 96
[2017-07-07] MEDS: RESP: ALBUTEROL 2.5 MG/3 ML NEB (PRN) INH ×2 (09:42→21:08)
--- NOTE | 2017-07-07 09:45 | HHI.PR ---
Subjective Remarks Follow-up COPD exacerbation/hypoxic respiratory failure 07/03/17-patient seen and examined, respiratory status improving and patient denies significant shortness of breath. Currently starting at 97%.. Still smokes half a pack per day 07/04/17-patient seen and examined, reports improvement of shortness of breath. Complains of back pain as well as bilateral lower extremities secondary to RLS for which patient is requesting narcotics. Afebrile 07/05/17-patient seen and examined, reports significant improvement of shortness of breath, afebrile and no acute event overnight 07/06/17-patient seen and examined, patient failed walk test yesterday and she complains of cough production however describe as white. Currently afebrile. Case discussed with case technician to assist with discharge proceeding 07/07/17-patient seen and examined, breathing better and denies any significant shortness of breath. Cough improving Objective Vitals Vital Signs Date Time Temp Pulse Resp B/P (MAP) Pulse Ox O2 Delivery O2 Flow Rate FiO2 07/07/17 09:36 96 Nasal Cannula 2.00 07/07/17 00:00 97.7 76 16 142/86 (104) 94 07/06/17 21:32 95 Nasal Cannula 2.00 07/06/17 20:00 98.0 75 18 163/92 (115) 93 07/06/17 16:00 96.8 80 18 165/91 (115) 94 07/06/17 11:58 97.1 69 17 164/97 (119) 95 I/O 07/06/17 07/06/17 07/06/17 07/07/17 07/07/17 07/07/17 07:00 15:00 23:00 07:00 15:00 23:00 Intake Total 240 ml 1920 ml 600 ml 720 ml Balance 240 ml 1920 ml 600 ml 720 ml Intake Oral 240 ml 1920 ml 600 ml 720 ml # Voids 3 3 2 2 # Bowel Movements 0 0 Result Diagram: 07/03/1781207/03/17812 Objective Remarks GENERAL: NAD SKIN: Warm and dry. HEAD: Normocephalic. EYES: No scleral icterus. No injection or drainage. NECK: Supple, trachea midline. No JVD or lymphadenopathy. CARDIOVASCULAR: Regular rate and rhythm without murmurs, gallops, or rubs. RESPIRATORY: Breath sounds decreased bilaterally. No accessory muscle use. GASTROINTESTINAL: Abdomen soft, non-tender, nondistended. MUSCULOSKELETAL: No cyanosis, or edema. BACK: Nontender without obvious deformity. No CVA tenderness. Procedures none A/P Problem List: (1) Acute respiratory failure with hypoxia ICD Code: J96.01 - Acute respiratory failure with hypoxia Status: Resolved (2) COPD with acute exacerbation ICD Code: J44.1 - Chronic obstructive pulmonary disease with (acute) exacerbation Status: Resolved (3) Hypertensive urgency ICD Code: I16.0 - Hypertensive urgency Status: Resolved (4) Tobacco abuse ICD Code: Z72.0 - Tobacco use (5) IFG (impaired fasting glucose) ICD Code: R73.01 - Impaired fasting glucose Assessment and Plan 52-year-old female with Acute respiratory failure with hypoxemia-resolved COPD exacerbation-resolved Currently on prednisone 10 mg by mouth twice a day Continue Spiriva, Symbicort, continue schedule and when necessary duo Neb as well as antibiotic. Continue Mucinex Maintain oxygen saturation above 92% Tobacco cessation counseling provided BiPAP when necessary Failed walk test 07/05/17. Repeat walk test within the next days Impaired fasting glucose A1c 5.9 Hypertension Continue Norvasc Tobacco abuse Tobacco cessation counseling provided Continue nicotine patch DVT prophylaxis: Bilateral SCDs Discharge Planning When arrangement is made for home oxygen Catalino Cash MD Jul 07, 2017 09:45
[2017-07-07] MEDS: predniSONE 10 MG TAB PO SCH ×2 (10:06→20:32)
[2017-07-07] MEDS: guaiFENesin E.R. 600 MG TAB PO SCH ×2 (10:06→20:32)
[2017-07-07] MEDS: TIOTROPIUM BROMIDE 18 MCG INH INH SCH (10:07)
[2017-07-07] MEDS: BUDESONIDE-FORMOTEROL 160/4.5 MCG INHALER INH SCH ×2 (10:07→20:31)
[2017-07-07] MEDS: SODIUM CHLORIDE 0.9% FLUSH 10 ML FLUSH IV FLUSH SCH ×2 (10:08→20:49)
[2017-07-07 12:00] VITALS: BP 152/101; PULSE 70; RESP 20; TEMP 96.7; O2SAT 94
[2017-07-07 16:37] VITALS: BP 145/93; PULSE 66; RESP 20; TEMP 97.7; O2SAT 96
[2017-07-07 20:00] VITALS: BP 151/93; PULSE 79; RESP 20; TEMP 97.5; O2SAT 95
[2017-07-07] MEDS: LEVOFLOXACIN 250 MG TAB PO SCH (20:32)
[2017-07-08] VITALS (8 sets, daily range): BP systolic 143–167; BP diastolic 70–108; PULSE 67–89; RESP 17–20; TEMP 96–97.7; O2SAT 95–97
[2017-07-08] MEDS: ACETAMINOPHEN 325 MG TAB PO PRN ×5 (00:31→20:04)
[2017-07-08] MEDS: HEPARIN SODIUM - SQ 10,000 UNITS/ML VIAL SQ SCH ×3 (05:40→20:03)
[2017-07-08] MEDS: INSULIN ASPART SUPPLEMENTAL SCALE SQ SCH ×4 (06:32→20:17)
[2017-07-08] MEDS: guaiFENesin E.R. 600 MG TAB PO SCH ×2 (07:42→20:03)
[2017-07-08] MEDS: predniSONE 10 MG TAB PO SCH ×2 (07:42→20:03)
[2017-07-08] MEDS: BUDESONIDE-FORMOTEROL 160/4.5 MCG INHALER INH SCH ×2 (07:43→20:03)
[2017-07-08] MEDS: TIOTROPIUM BROMIDE 18 MCG INH INH SCH (07:43)
[2017-07-08] MEDS: REMOVE OLD PATCH T-DERMAL SCH (07:43)
[2017-07-08] MEDS: SODIUM CHLORIDE 0.9% FLUSH 10 ML FLUSH IV FLUSH SCH ×2 (07:44→20:03)
[2017-07-08] MEDS: NICOTINE 14 MG/24 HR PATCH T-DERMAL SCH (07:44)
--- NOTE | 2017-07-08 11:43 | HHI.PR ---
Subjective Remarks Follow-up COPD exacerbation/hypoxic respiratory failure 07/03/17-patient seen and examined, respiratory status improving and patient denies significant shortness of breath. Currently starting at 97%.. Still smokes half a pack per day 07/04/17-patient seen and examined, reports improvement of shortness of breath. Complains of back pain as well as bilateral lower extremities secondary to RLS for which patient is requesting narcotics. Afebrile 07/05/17-patient seen and examined, reports significant improvement of shortness of breath, afebrile and no acute event overnight 07/06/17-patient seen and examined, patient failed walk test yesterday and she complains of cough production however describe as white. Currently afebrile. Case discussed with behavioral health case manager to assist with discharge proceeding 07/07/17-patient seen and examined, breathing better and denies any significant shortness of breath. Cough improving 07/08/17-patient seen and examined, no acute event overnight. no shortness of breath Objective Vitals Vital Signs Date Time Temp Pulse Resp B/P (MAP) Pulse Ox O2 Delivery O2 Flow Rate FiO2 07/08/17 07:41 96.0 67 20 167/108 (127) 95 07/08/17 04:00 96.9 79 20 150/98 (115) 97 07/08/17 00:00 97.7 76 20 150/90 (110) 97 07/07/17 20:00 97.5 79 20 151/93 (112) 95 07/07/17 16:37 97.7 66 20 145/93 (110) 96 07/07/17 12:00 96.7 70 20 152/101 (118) 94 I/O 07/07/17 07/07/17 07/07/17 07/08/17 07/08/17 07/08/17 07:00 15:00 23:00 07:00 15:00 23:00 Intake Total 720 ml 650 ml 320 ml Balance 720 ml 650 ml 320 ml Intake Oral 720 ml 650 ml 320 ml # Voids 2 4 3 # Bowel Movements 1 1 Objective Remarks GENERAL: NAD SKIN: Warm and dry. HEAD: Normocephalic. EYES: No scleral icterus. No injection or drainage. NECK: Supple, trachea midline. No JVD or lymphadenopathy. CARDIOVASCULAR: Regular rate and rhythm without murmurs, gallops, or rubs. RESPIRATORY: Breath sounds decreased bilaterally. No accessory muscle use. GASTROINTESTINAL: Abdomen soft, non-tender, nondistended. MUSCULOSKELETAL: No cyanosis, or edema. BACK: Nontender without obvious deformity. No CVA tenderness. Procedures none A/P Problem List: (1) Acute respiratory failure with hypoxia ICD Code: J96.01 - Acute respiratory failure with hypoxia Status: Resolved (2) COPD with acute exacerbation ICD Code: J44.1 - Chronic obstructive pulmonary disease with (acute) exacerbation Status: Resolved (3) Hypertensive urgency ICD Code: I16.0 - Hypertensive urgency Status: Resolved (4) Tobacco abuse ICD Code: Z72.0 - Tobacco use (5) IFG (impaired fasting glucose) ICD Code: R73.01 - Impaired fasting glucose Assessment and Plan 52-year-old female with Acute respiratory failure with hypoxemia-resolved COPD exacerbation-resolved Continue prednisone 10 mg by mouth twice a day Continue Spiriva, Symbicort, continue schedule and when necessary duo Neb as well as antibiotic. Continue Mucinex Maintain oxygen saturation above 92% Tobacco cessation counseling provided BiPAP when necessary Failed walk test 07/05/17. Repeat walk test prior to discharge Impaired fasting glucose A1c 5.9 Hypertension Continue Norvasc Tobacco abuse Tobacco cessation counseling provided Continue nicotine patch DVT prophylaxis: Bilateral SCDs Discharge Planning When arrangement is made for home oxygen Catalino Cash MD Jul 08, 2017 11:43
[2017-07-08] MEDS: RESP: ALBUTEROL 2.5 MG/3 ML NEB (PRN) INH (16:36)
[2017-07-08] MEDS: LEVOFLOXACIN 250 MG TAB PO SCH (20:03)
[2017-07-08] MEDS: ONDANSETRON HCL 4 MG/2 ML VIAL IVP PRN (23:11)
[2017-07-09] MEDS: ACETAMINOPHEN 325 MG TAB PO PRN ×5 (01:20→20:34)
[2017-07-09 04:00] VITALS: BP 145/98; PULSE 74; RESP 17; TEMP 96.7; O2SAT 97
[2017-07-09] MEDS: HEPARIN SODIUM - SQ 10,000 UNITS/ML VIAL SQ SCH ×3 (05:47→20:33)
[2017-07-09] MEDS: INSULIN ASPART SUPPLEMENTAL SCALE SQ SCH ×4 (06:06→20:36)
[2017-07-09 08:00] VITALS: BP 152/96; PULSE 66; RESP 18; TEMP 96.7; O2SAT 97
[2017-07-09] MEDS: guaiFENesin E.R. 600 MG TAB PO SCH ×2 (08:08→20:36)
[2017-07-09] MEDS: predniSONE 10 MG TAB PO SCH ×2 (08:08→20:35)
[2017-07-09] MEDS: TIOTROPIUM BROMIDE 18 MCG INH INH SCH (08:09)
[2017-07-09] MEDS: BUDESONIDE-FORMOTEROL 160/4.5 MCG INHALER INH SCH ×2 (08:09→20:35)
[2017-07-09] MEDS: REMOVE OLD PATCH T-DERMAL SCH (08:10)
[2017-07-09] MEDS: NICOTINE 14 MG/24 HR PATCH T-DERMAL SCH (08:10)
[2017-07-09] MEDS: SODIUM CHLORIDE 0.9% FLUSH 10 ML FLUSH IV FLUSH SCH ×2 (08:10→20:34)
--- NOTE | 2017-07-09 10:36 | HHI.PR ---
Subjective Remarks Follow-up COPD exacerbation/hypoxic respiratory failure 07/03/17-patient seen and examined, respiratory status improving and patient denies significant shortness of breath. Currently starting at 97%.. Still smokes half a pack per day 07/04/17-patient seen and examined, reports improvement of shortness of breath. Complains of back pain as well as bilateral lower extremities secondary to RLS for which patient is requesting narcotics. Afebrile 07/05/17-patient seen and examined, reports significant improvement of shortness of breath, afebrile and no acute event overnight 07/06/17-patient seen and examined, patient failed walk test yesterday and she complains of cough production however describe as white. Currently afebrile. Case discussed with director case to assist with discharge proceeding 07/07/17-patient seen and examined, breathing better and denies any significant shortness of breath. Cough improving 07/08/17-patient seen and examined, no acute event overnight. no shortness of breath 07/09/17-patient seen and examined. Breathing better and stable. Currently afebrile Objective Vitals Vital Signs Date Time Temp Pulse Resp B/P (MAP) Pulse Ox O2 Delivery O2 Flow Rate FiO2 07/09/17 04:00 96.7 74 17 145/98 (114) 97 07/08/17 23:25 97.2 72 17 150/70 (96) 96 07/08/17 20:45 96.8 89 18 144/82 (102) 95 07/08/17 16:00 96.2 83 18 143/94 (110) 96 07/08/17 13:50 95 Nasal Cannula 2.00 07/08/17 12:00 97.6 74 18 165/93 (117) 97 I/O 07/08/17 07/08/17 07/08/17 07/09/17 07/09/17 07/09/17 06:59 14:59 22:59 06:59 14:59 22:59 Intake Total 320 ml 600 ml 360 ml 720 ml Balance 320 ml 600 ml 360 ml 720 ml Intake Oral 320 ml 600 ml 360 ml 720 ml # Voids 3 5 5 5 # Bowel Movements 1 1 0 0 Objective Remarks GENERAL: NAD SKIN: Warm and dry. HEAD: Normocephalic. EYES: No scleral icterus. No injection or drainage. NECK: Supple, trachea midline. No JVD or lymphadenopathy. CARDIOVASCULAR: Regular rate and rhythm without murmurs, gallops, or rubs. RESPIRATORY: Breath sounds decreased bilaterally. No accessory muscle use. GASTROINTESTINAL: Abdomen soft, non-tender, nondistended. MUSCULOSKELETAL: No cyanosis, or edema. BACK: Nontender without obvious deformity. No CVA tenderness. Procedures none A/P Problem List: (1) Acute respiratory failure with hypoxia ICD Code: J96.01 - Acute respiratory failure with hypoxia Status: Resolved (2) COPD with acute exacerbation ICD Code: J44.1 - Chronic obstructive pulmonary disease with (acute) exacerbation Status: Resolved (3) Hypertensive urgency ICD Code: I16.0 - Hypertensive urgency Status: Resolved (4) Tobacco abuse ICD Code: Z72.0 - Tobacco use (5) IFG (impaired fasting glucose) ICD Code: R73.01 - Impaired fasting glucose Assessment and Plan 52-year-old female with Acute respiratory failure with hypoxemia-resolved COPD exacerbation-resolved Continue prednisone 10 mg by mouth twice a day Continue Spiriva, Symbicort, continue schedule and when necessary duo Neb as well as antibiotic. Continue Mucinex Maintain oxygen saturation above 92% Tobacco cessation counseling provided BiPAP when necessary Failed walk test 07/05/17. Repeat walk test prior to discharge next week Impaired fasting glucose A1c 5.9 Hypertension Continue Norvasc Tobacco abuse Tobacco cessation counseling provided Continue nicotine patch DVT prophylaxis: Bilateral SCDs Discharge Planning When arrangement is made for home oxygen Catalino Cash MD Jul 09, 2017 10:36
[2017-07-09 11:01] VITALS: O2SAT 97
[2017-07-09 12:00] VITALS: BP 144/84; PULSE 70; RESP 18; TEMP 96.9; O2SAT 95
[2017-07-09] MEDS: RESP: ALBUTEROL 2.5 MG/3 ML NEB (PRN) INH (15:42)
[2017-07-09 16:00] VITALS: BP 189/99; PULSE 77; RESP 18; TEMP 97.3; O2SAT 95
[2017-07-09 20:20] VITALS: BP 131/88; PULSE 73; RESP 18; TEMP 97.3; O2SAT 96
[2017-07-09] MEDS: LEVOFLOXACIN 250 MG TAB PO SCH (20:35)
[2017-07-10 00:25] VITALS: BP 154/92; PULSE 67; RESP 19; TEMP 97.3; O2SAT 94
[2017-07-10] MEDS: ACETAMINOPHEN 325 MG TAB PO PRN ×4 (00:38→13:12)
[2017-07-10] MEDS: HEPARIN SODIUM - SQ 10,000 UNITS/ML VIAL SQ SCH ×2 (04:52→12:00)
[2017-07-10 06:01] VITALS: O2SAT 95
[2017-07-10] MEDS: INSULIN ASPART SUPPLEMENTAL SCALE SQ SCH ×3 (06:12→16:00)
[2017-07-10 08:00] VITALS: BP 185/107; PULSE 66; RESP 18; TEMP 96.7; O2SAT 94
[2017-07-10] MEDS: TIOTROPIUM BROMIDE 18 MCG INH INH SCH (08:09)
[2017-07-10] MEDS: BUDESONIDE-FORMOTEROL 160/4.5 MCG INHALER INH SCH (08:09)
[2017-07-10] MEDS: SODIUM CHLORIDE 0.9% FLUSH 10 ML FLUSH IV FLUSH SCH (08:09)
[2017-07-10] MEDS: NICOTINE 14 MG/24 HR PATCH T-DERMAL SCH (08:10)
[2017-07-10] MEDS: predniSONE 10 MG TAB PO SCH (08:10)
[2017-07-10] MEDS: guaiFENesin E.R. 600 MG TAB PO SCH (08:10)
[2017-07-10] MEDS: REMOVE OLD PATCH T-DERMAL SCH (09:00)
--- NOTE | 2017-07-10 09:00 | HHI.PR ---
Subjective Remarks Follow-up COPD exacerbation/hypoxic respiratory failure 07/03/17-patient seen and examined, respiratory status improving and patient denies significant shortness of breath. Currently starting at 97%.. Still smokes half a pack per day 07/04/17-patient seen and examined, reports improvement of shortness of breath. Complains of back pain as well as bilateral lower extremities secondary to RLS for which patient is requesting narcotics. Afebrile 07/05/17-patient seen and examined, reports significant improvement of shortness of breath, afebrile and no acute event overnight 07/06/17-patient seen and examined, patient failed walk test yesterday and she complains of cough production however describe as white. Currently afebrile. Case discussed with clinical case manager to assist with discharge proceeding 07/07/17-patient seen and examined, breathing better and denies any significant shortness of breath. Cough improving 07/08/17-patient seen and examined, no acute event overnight. no shortness of breath 07/09/17-patient seen and examined. Breathing better and stable. Currently afebrile 07/10/17-patient seen and examined; doing well and denies any shortness of breath. Objective Vitals Vital Signs Date Time Temp Pulse Resp B/P (MAP) Pulse Ox O2 Delivery O2 Flow Rate FiO2 07/10/17 06:01 95 Nasal Cannula 2.00 07/10/17 00:25 97.3 67 19 154/92 (112) 94 07/09/17 20:20 97.3 73 18 131/88 (102) 96 07/09/17 16:00 97.3 77 18 189/99 (129) 95 07/09/17 12:00 96.9 70 18 144/84 (104) 95 07/09/17 11:01 97 Nasal Cannula 2.00 I/O 07/09/17 07/09/17 07/09/17 07/10/17 07/10/17 07/10/17 07:00 15:00 23:00 07:00 15:00 23:00 Intake Total 720 ml 600 ml 720 ml 480 ml Balance 720 ml 600 ml 720 ml 480 ml Intake Oral 720 ml 600 ml 720 ml 480 ml # Voids 5 4 3 2 # Bowel Movements 0 0 1 0 Objective Remarks GENERAL: NAD SKIN: Warm and dry. HEAD: Normocephalic. EYES: No scleral icterus. No injection or drainage. NECK: Supple, trachea midline. No JVD or lymphadenopathy. CARDIOVASCULAR: Regular rate and rhythm without murmurs, gallops, or rubs. RESPIRATORY: Breath sounds decreased bilaterally. No accessory muscle use. GASTROINTESTINAL: Abdomen soft, non-tender, nondistended. MUSCULOSKELETAL: No cyanosis, or edema. BACK: Nontender without obvious deformity. No CVA tenderness. Procedures none A/P Problem List: (1) Acute respiratory failure with hypoxia ICD Code: J96.01 - Acute respiratory failure with hypoxia Status: Resolved (2) COPD with acute exacerbation ICD Code: J44.1 - Chronic obstructive pulmonary disease with (acute) exacerbation Status: Resolved (3) Hypertensive urgency ICD Code: I16.0 - Hypertensive urgency Status: Resolved (4) Tobacco abuse ICD Code: Z72.0 - Tobacco use (5) IFG (impaired fasting glucose) ICD Code: R73.01 - Impaired fasting glucose Assessment and Plan 52-year-old female with Acute respiratory failure with hypoxemia-resolved COPD exacerbation-resolved Continue prednisone 10 mg by mouth twice a day Continue Spiriva, Symbicort, continue schedule and when necessary duo Neb as well as antibiotic. Maintain oxygen saturation above 92% Tobacco cessation counseling provided BiPAP when necessary Failed walk test 07/05/17. Repeat walk test today 07/10/17 Impaired fasting glucose A1c 5.9 Hypertension Continue Norvasc Tobacco abuse Tobacco cessation counseling provided Continue nicotine patch DVT prophylaxis: Bilateral SCDs Discharge Planning When arrangement is made for home oxygen likely tomorrow 07/11/17 Catalino Cash MD Jul 10, 2017 09:00
[2017-07-10] MEDS ORDERED: SPIRCAP INH (12:29)
[2017-07-10] MEDS ORDERED: IPRA17I INH (12:33)
[2017-07-10] MEDS ORDERED: SYMB160A INH (12:33)
[2017-07-10] MEDS ORDERED: AMLO10TA2 PO (12:33)
[2017-07-10] MEDS ORDERED: VENTAER INH (12:33)
[2017-07-10] MEDS ORDERED: guaiFENesin ER PO (12:33)
[2017-07-10] MEDS ORDERED: PRED10PA PO (14:01)
[2017-07-10] MEDS: cloNIDine HCL 0.1 MG TAB PO PRN (14:25)
[2017-07-10 17:26] VITALS: O2SAT 94
[2017-07-21] MEDS ORDERED: HYDR50TA94 PO (09:47)
[2017-07-21] MEDS ORDERED: ESCI10TA PO (09:47)
[2017-07-21] MEDS ORDERED: LAMO25TA PO (09:47)
== END 2017-07-10 18:43 | disposition home or self-care (01) | DRG 190 ==
LOC: NEPE 17:50 → INTOOBSV 20:21 → NEDA 20:21 → OBSVTOIN 21:00 → HCIS 23:58 → N06A 07-04 12:53
PROVIDERS: ADMIT Hospitalist; ATTEND Hospitalist
DX: J44.1 Chronic obstructive pulmonary disease with (acute) exacerbation (principal); J96.01 Acute respiratory failure with hypoxia; N17.9 Acute kidney failure, unspecified; I10 Essential (primary) hypertension; E78.5 Hyperlipidemia, unspecified; G25.81 Restless legs syndrome; F17.200 Nicotine dependence, unspecified, uncomplicated; I16.0 Hypertensive urgency; M54.40 Lumbago with sciatica, unspecified side; Z87.01 Personal history of pneumonia (recurrent); J45.909 Unspecified asthma, uncomplicated; G43.909 Migraine, unspecified, not intractable, without status migrainosus; R00.0 Tachycardia, unspecified
CPT/HCPCS: 36600; 71010; 80048; 80061; 82550; 82552; 82805; 82948; 83036; 84484; 85025; 85610; 85730; 93005; 94002; 94003; 94620; 94640; 94664; 96365; 96375; J1644; J1815; J1885; J2405; J2920; J3475; J7030; J7512; J7613

== ENCOUNTER → 2017-07-13 | Outpatient (CLI) | payer OTHER ==
[~2017-07-13] MED LIST changes: +ADVA100A INH; -ADVA115A INH; +ESCI10TA PO; +HYDR50TA94 PO; +IPRA17I INH; +LAMO25TA PO; +PRED10PA PO; +PRED20 PO; +SPIRCAP INH; +SYMB160A INH; +guaiFENesin ER PO
[2017-07-13 08:53] LABS: HDL CHOLESTEROL 68.9 MG/DL (40.0-60.0); LDL CHOLESTEROL 83 MG/DL (0-99)
[2017-07-13 16:12] LABS: HEMOGLOBIN A1a 1.4 %; HEMOGLOBIN Ao 83.1 %; HEMOGLOBIN F 1.3 %; HEMOGLOBIN LA1C 2.1 %; HEMOGLOBIN P3 4.2 %
== END ==
LOC: CLAB 08:01
PROVIDERS: ATTEND Nurse Practitioner Family
DX: R63.1 Polydipsia (principal); I10 Essential (primary) hypertension
CPT/HCPCS: 36415; 80061; 83036